=== PATIENT | female | born 1945 | race Caucasian/White ===

== ENCOUNTER → 2017-01-29 | Outpatient (CLI) | payer BC ==
[2017-01-29 13:13] LABS: ALT/SGPT 49 U/L (12-78); AST/SGOT 38 U/L (15-37); BLOOD UREA NITROGEN 22 mg/dl (7-18); BUN/CREATININE RATIO 20.3 (10-20); CALCIUM 9.3 mg/dl (8.5-10.1); CARBON DIOXIDE 27 mmol/L (21-32); CHLORIDE 105 mmol/L (98-107); CHOLESTEROL 166 mg/dl (0-200); GLUCOSE 135 mg/dl (70-99); POTASSIUM 4.1 mmol/L (3.5-5.1); SODIUM 137 mmol/L (136-145)
[2017-01-29 13:15] LABS: ALB/GLOB RATIO 1.4 (0.9-2); ALKALINE PHOSPHATASE 67 U/L (45-117); CHOLESTEROL/HDL RATIO 2.6; HDL CHOLESTEROL 63 mg/dl; LDL CHOLESTEROL CALCULATED 79 mg/dl; TRIGLYCERIDES 121 mg/dl (0-150); VERY LOW DENSITY LIPOPROT CALC 24 mg/dl
[2017-01-29 13:22] LABS: ESTIMATED AVERAGE GLUCOSE 163 mg/dl; HA1C FLAG Normal (Normal)
== END | disposition home or self-care (01) ==
LOC: C.LABMFLN 09:38
PROVIDERS: ATTEND Family Medicine
DX: I10 Essential (primary) hypertension (principal); E11.9 Type 2 diabetes mellitus without complications; E78.00 Pure hypercholesterolemia, unspecified

== ENCOUNTER → 2017-05-31 | Outpatient (CLI) | payer BC ==
[2017-05-31 13:42] LABS: ESTIMATED AVERAGE GLUCOSE 177 mg/dl; HA1C FLAG Normal (Normal)
[2017-05-31 15:24] LABS: BLOOD UREA NITROGEN 28 mg/dl (7-18); GLUCOSE 149 mg/dl (70-99)
[2017-05-31 15:25] LABS: BUN/CREATININE RATIO 25.7 (10-20); CALCIUM 9.8 mg/dl (8.5-10.1); CARBON DIOXIDE 21 mmol/L (21-32); CHLORIDE 109 mmol/L (98-107); POTASSIUM 4.3 mmol/L (3.5-5.1); SODIUM 139 mmol/L (136-145)
--- NOTE | 2017-06-06 10:46 | CODING QUERY MEDICAL NECESSITY ---
CQSUPPORTING DIAGNOSIS NEEDED A supporting diagnosis is required for the test/procedure performed on this patient in order for us to be reimbursed by the patient's insurance. Please provide a supporting diagnosis for the following test/procedure listed below next to the test name along with your signature. *If there is no additional diagnosis for this patient that would support the following test/procedure please document that below next to the test/procedure. Test(s)/Procedure(s) that require a supporting diagnosis: DOS 05/31/17 VITAMIN B12 Provider Signature: Date: Thank you Kimberly Ramsey [employer] Once completed, please kindly fax back to [phone] For questions please call [phone]
== END | disposition home or self-care (01) ==
LOC: C.LABMFLN 08:53
PROVIDERS: ATTEND Family Medicine
DX: I10 Essential (primary) hypertension (principal); E11.9 Type 2 diabetes mellitus without complications; K25.9 Gastric ulcer, unspecified as acute or chronic, without hemorrhage or perforation; E53.8 Deficiency of other specified B group vitamins

== ENCOUNTER → 2017-09-12 | Outpatient (CLI) | payer BC ==
[2017-09-12 13:57] LABS: ALT/SGPT 60 U/L (12-78); AST/SGOT 41 U/L (15-37); BLOOD UREA NITROGEN 24 mg/dl (7-18); BUN/CREATININE RATIO 19.8 (10-20); CALCIUM 9.4 mg/dl (8.5-10.1); CARBON DIOXIDE 24 mmol/L (21-32); CHLORIDE 109 mmol/L (98-107); GLUCOSE 149 mg/dl (70-99); POTASSIUM 4.5 mmol/L (3.5-5.1); SODIUM 140 mmol/L (136-145)
[2017-09-12 14:00] LABS: ALB/GLOB RATIO 1.1 (0.9-2); ALKALINE PHOSPHATASE 68 U/L (45-117); CHOLESTEROL 181 mg/dl (0-200); HDL CHOLESTEROL 61 mg/dl; LDL CHOLESTEROL CALCULATED 88 mg/dl; TRIGLYCERIDES 161 mg/dl (0-150); VERY LOW DENSITY LIPOPROT CALC 32 mg/dl
[2017-09-12 14:49] LABS: ESTIMATED AVERAGE GLUCOSE 171 mg/dl; HA1C FLAG Normal (Normal)
== END | disposition home or self-care (01) ==
LOC: C.LABMFLN 08:20
PROVIDERS: ATTEND Family Medicine
DX: E11.9 Type 2 diabetes mellitus without complications (principal); E78.00 Pure hypercholesterolemia, unspecified

== ENCOUNTER → 2018-01-16 | Outpatient (CLI) | payer BC ==
[2018-01-16 12:57] LABS: ALBUMIN 4.1 gm/dl (3.4-5.0); ALT/SGPT 48 U/L (12-78); BLOOD UREA NITROGEN 30 mg/dl (7-18); CALCIUM 9.1 mg/dl (8.5-10.1); CARBON DIOXIDE 24 mmol/L (21-32); CHOLESTEROL 174 mg/dl (0-200); CREATININE 1.15 mg/dl (0.60-1.20); GLUCOSE 147 mg/dl (70-99); POTASSIUM 4.4 mmol/L (3.5-5.1); SODIUM 140 mmol/L (136-145)
[2018-01-16 13:00] LABS: ALKALINE PHOSPHATASE 59 U/L (45-117); AST/SGOT 32 U/L (15-37); LDL CHOLESTEROL CALCULATED 93 mg/dl; TOTAL PROTEIN 7.3 gm/dl (6.4-8.2)
[2018-01-16 13:08] LABS: HEMOGLOBIN A1C 7.6 % (4.5-5.6)
== END | disposition home or self-care (01) ==
LOC: C.LABMFLN 09:24
PROVIDERS: ATTEND Family Medicine
DX: I10 Essential (primary) hypertension (principal); E11.9 Type 2 diabetes mellitus without complications; E78.00 Pure hypercholesterolemia, unspecified

== ENCOUNTER → 2018-04-22 | Outpatient (CLI) | payer BC ==
[2018-04-22 13:15] LABS: BLOOD UREA NITROGEN 29 mg/dl (7-18); CALCIUM 9.4 mg/dl (8.5-10.1); CARBON DIOXIDE 24 mmol/L (21-32); CREATININE 1.18 mg/dl (0.60-1.20); GLUCOSE 159 mg/dl (70-99); POTASSIUM 4.3 mmol/L (3.5-5.1); SODIUM 139 mmol/L (136-145)
[2018-04-22 13:33] LABS: HEMOGLOBIN A1C 8.1 % (4.5-5.6)
== END | disposition home or self-care (01) ==
LOC: C.LABMFLN 09:46
PROVIDERS: ATTEND Family Medicine
DX: E11.43 Type 2 diabetes mellitus with diabetic autonomic (poly)neuropathy (principal)

== ENCOUNTER → 2018-06-19 | Outpatient (CLI) | payer BC ==
[2018-06-19 13:42] LABS: BLOOD UREA NITROGEN 25 mg/dl (7-18); CREATININE 1.18 mg/dl (0.60-1.20)
== END | disposition home or self-care (01) ==
LOC: C.LABMFLN 10:07
PROVIDERS: ATTEND Family Medicine
DX: E11.43 Type 2 diabetes mellitus with diabetic autonomic (poly)neuropathy (principal)

== ENCOUNTER 2023-01-30 10:25 | Inpatient (IN) ==
--- NOTE | 2022-12-28 10:16 | PAT Medication Instructions ---
Medication Instructions Date of Service December 28, 2022 Home Medications Medication Instructions Recorded coenzyme Q10 400 mg capsule 400 mg PO DAILY #90 caps 05/14/19 fexofenadine 180 mg tablet 180 mg PO DAILY PRN allergy 05/14/19 symptoms #90 tabs glucosamine 750 ft-zmnejewhymy-mmx 1 tab PO BID #60 tabs 08/04/20 no1 644 mg-C 30 mg-kera 1 mg tablet (Osteo Bi-Flex Triple Strength) methocarbamol 500 mg tablet See Rx Instructions PO QID PRN 03/07/22 muscle spasm #360 tabs citalopram 10 mg tablet 10 mg PO QAM #90 tabs 04/24/22 glimepiride 4 mg tablet 4 mg PO BID #180 tabs 07/23/22 metoprolol tartrate 50 mg tablet 50 mg PO BID #180 tabs 07/23/22 conjugated estrogens 0.3 mg tablet 0.3 mg PO DAILY #30 tabs 08/02/22 fenofibrate 54 mg tablet 54 mg PO DAILY #90 tabs 08/07/22 amlodipine 2.5 mg tablet 2.5 mg PO DAILY #90 tabs 08/31/22 celecoxib 200 mg capsule 200 mg PO DAILY #90 caps 09/18/22 hydrochlorothiazide 25 mg tablet 25 mg PO DAILY #90 tabs 09/25/22 gabapentin 300 mg capsule 300 mg PO TID #270 caps 10/08/22 atorvastatin 40 mg tablet 40 mg PO DAILY #90 tabs 10/29/22 metformin 500 mg tablet,extended 500 mg PO BID #180 tabs 11/06/22 release 24 hr losartan 100 mg tablet 100 mg PO DAILY #90 tabs 12/04/22 lansoprazole 30 mg capsule,delayed 30 mg PO DAILY #90 caps 12/19/22 release hydrocodone 5 mg-acetaminophen 325 See Rx Instructions PO QID PRN 12/21/22 mg tablet pain #240 tabs albuterol sulfate 90 mcg/actuation aerosol inhaler 2 puffs inhalation Q4H PRN shortness of breath or wheezing coenzyme Q10 400 mg capsule 400 mg PO DAILY fexofenadine 180 mg tablet 180 mg PO DAILY PRN allergy symptoms nqfB-H2-V-V-uhwvup-imjbsgt-min 3,300 unit-5 mg-200mg-75 unit tablet ER (ICaps) 1 tab PO BID magnesium oxide 400 mg (241.3 mg magnesium) tablet 1,200 mg PO HS glucosamine 750 hw-qvpxghrjcsq-yik no1 644 mg-C 30 mg-kera 1 mg tablet (Osteo Bi-Flex Triple Strength) 1 tab PO BID methocarbamol 500 mg tablet See Rx Instructions PO QID PRN muscle spasm citalopram 10 mg tablet 10 mg PO QAM glimepiride 4 mg tablet 4 mg PO BID metoprolol tartrate 50 mg tablet 50 mg PO BID conjugated estrogens 0.3 mg tablet 0.3 mg PO DAILY fenofibrate 54 mg tablet 54 mg PO DAILY amlodipine 2.5 mg tablet 2.5 mg PO DAILY fluticasone propionate 50 mcg/actuation nasal spray,suspension 2 spray intranasal DAILY PRN Allergy Symptoms celecoxib 200 mg capsule 200 mg PO DAILY hydrochlorothiazide 25 mg tablet 25 mg PO DAILY gabapentin 300 mg capsule 300 mg PO TID atorvastatin 40 mg tablet 40 mg PO DAILY metformin 500 mg tablet,extended release 24 hr 500 mg PO BID losartan 100 mg tablet 100 mg PO DAILY lansoprazole 30 mg capsule,delayed release 30 mg PO DAILY hydrocodone 5 mg-acetaminophen 325 mg tablet See Rx Instructions PO QID PRN pain ASK your surgeon for instructions conjugated estrogens 0.3 mg tablet 0.3 mg PO DAILY celecoxib 200 mg capsule 200 mg PO DAILY STOP taking 2 weeks before surgery (or as soon as possible if surgery is within 2 weeks) coenzyme Q10 400 mg capsule 400 mg PO DAILY edhF-M1-L-E-trhusv-atkwoad-min 3,300 unit-5 mg-200mg-75 unit tablet ER (ICaps) 1 tab PO BID glucosamine 750 wh-hctwyguliad-ira no1 644 mg-C 30 mg-kera 1 mg tablet (Osteo Bi-Flex Triple Strength) 1 tab PO BID STOP taking 48 hours before surgery fenofibrate 54 mg tablet 54 mg PO DAILY DO NOT take the morning of surgery fexofenadine 180 mg tablet 180 mg PO DAILY PRN allergy symptoms methocarbamol 500 mg tablet See Rx Instructions PO QID PRN muscle spasm glimepiride 4 mg tablet 4 mg PO BID hydrochlorothiazide 25 mg tablet 25 mg PO DAILY metformin 500 mg tablet,extended release 24 hr 500 mg PO BID losartan 100 mg tablet 100 mg PO DAILY Take morning of surgery With a small sip of water, OTHERWISE NOTHING TO EAT OR DRINK AFTER MIDNIGHT: albuterol sulfate 90 mcg/actuation aerosol inhaler 2 puffs inhalation Q4H PRN shortness of breath or wheezing (use if needed; please bring rescue inhaler with you to hospital day of surgery if possible) citalopram 10 mg tablet 10 mg PO QAM metoprolol tartrate 50 mg tablet 50 mg PO BID amlodipine 2.5 mg tablet 2.5 mg PO DAILY fluticasone propionate 50 mcg/actuation nasal spray,suspension 2 spray intranasal DAILY PRN Allergy Symptoms (if needed) gabapentin 300 mg capsule 300 mg PO TID atorvastatin 40 mg tablet 40 mg PO DAILY lansoprazole 30 mg capsule,delayed release 30 mg PO DAILY hydrocodone 5 mg-acetaminophen 325 mg tablet See Rx Instructions PO QID PRN pain (if needed) Take evening before surgery albuterol sulfate 90 mcg/actuation aerosol inhaler 2 puffs inhalation Q4H PRN shortness of breath or wheezing (if needed) fexofenadine 180 mg tablet 180 mg PO DAILY PRN allergy symptoms (if needed) magnesium oxide 400 mg (241.3 mg magnesium) tablet 1,200 mg PO HS methocarbamol 500 mg tablet See Rx Instructions PO QID PRN muscle spasm (if needed) glimepiride 4 mg tablet 4 mg PO BID metoprolol tartrate 50 mg tablet 50 mg PO BID fluticasone propionate 50 mcg/actuation nasal spray,suspension 2 spray intranasal DAILY PRN Allergy Symptoms (if needed) gabapentin 300 mg capsule 300 mg PO TID metformin 500 mg tablet,extended release 24 hr 500 mg PO BID hydrocodone 5 mg-acetaminophen 325 mg tablet See Rx Instructions PO QID PRN pain (if needed) Other Notes If you have any questions please call us at [phone] or [phone] or [phone] or [phone]
--- NOTE | 2023-01-02 13:57 | Anesthesiology Consultation ---
Date of Service January 02, 2023 Assessment & Plan (1) Encounter for pre-operative examination: Chart Review Chart Review: Acceptable Risk for Surgery (pending PCP clearance 01/03/23 and preop UA ) and Patient seen in Pre Admission Testing -Awaiting UA (pt unable to void at PAT appt- given order and supplies- pt will drop off 01/03/23 or 01/04/23 at [facility]) -Awaiting PCP clearance 01/03/23 - Check BSG AM DOS Pt is NOT a Same Day Joint candidate due to age Pt will update surgeon re: pessary- will leave to surgeon's discretion if pessary can remain in place or if needs removed prior to DOS Per PAT appt on 01/02/23, patient denies any recent travel or large group activities. Pt is vaccinated for Covid. Will leave to surgeon's discretion if preop Covid testing needed. Educated on importance of using Covid precautions one week prior to surgery Pt last seen by cardio 08/31/22= Pt seen for follow up on SVT. Outpatient monitoring suggests reentrant mechanism for SVT. Episodes have been brief in duration and well tolerated. Did have extended episode with some symptoms recently. Would still consider this benign condition. Discussed mechanism of SVT and overall benign nature of this arrhythmia. Discussed possible treatments including continued medical therapy or catheter based therapy. Discussed utility of vagal maneuvers and potentially terminating the arrhythmia. At this point she wants to continue to monitor her episodes on a higher dose of metoprolol. Should her symptoms worsen or she request more aggressive therapy she could be referred back to the clinic for discussion of alternatives. Follow up in six months Teaching & Discussion Pre-Anesthesia Teaching/Discussion Notes: Instructed NPO after midnight before surgery,except medications with 15 cc of water. Medication instructions provided according to the PAT guidelines. History Surgery Operation Date: 01/30/23 12:25 Proposed Procedures p Left Total Shoulder Arthroplasty, Arthroscopy with Distal Clavicle Excision, Subacromial Decompression - Neil Polanco MD Height/Weight Height: 5 ft 4 in Weight: 73.8 kg Allergies Allergy/AdvReac Type Severity Reaction Status Date / Time ibuprofen Allergy Mild Gastrointestinal Verified 12/27/22 15:19 Upset metronidazole [From Flagyl] Allergy Mild Gastrointestinal Verified 12/27/22 15:19 Upset propoxyphene [From Darvon] Allergy Mild Fatigued Verified 12/27/22 15:19 Medications Home Medications Medication Instructions Recorded Confirmed Last Taken albuterol sulfate 90 mcg/actuation 2 puffs inhalation Q4H PRN 05/14/19 12/27/22 Unknown aerosol inhaler shortness of breath or wheezing #1 g blood sugar diagnostic (Prodigy No #10 ea 05/14/19 11/05/22 Unknown Coding strips) coenzyme Q10 400 mg capsule 400 mg PO DAILY #90 caps 05/14/19 12/27/22 Unknown fexofenadine 180 mg tablet 180 mg PO DAILY PRN allergy 05/14/19 12/27/22 Unknown symptoms #90 tabs lancets 30 gauge (Easy Comfort #25 ea 05/14/19 11/05/22 Unknown Lancets) oilP-V0-Q-K-tkqxiu-vqdfggq-min 1 tab PO BID 05/14/19 12/27/22 Unknown 3,300 unit-5 mg-200mg-75 unit tablet ER (ICaps) magnesium oxide 400 mg (241.3 mg 1,200 mg PO HS 11/05/19 12/27/22 Unknown magnesium) tablet glucosamine 750 sm-qloqlbqieaz-uko 1 tab PO BID #60 tabs 08/04/20 12/27/22 Unknown no1 644 mg-C 30 mg-kera 1 mg tablet (Osteo Bi-Flex Triple Strength) methocarbamol 500 mg tablet See Rx Instructions PO QID PRN 03/07/22 12/27/22 Unknown muscle spasm #360 tabs citalopram 10 mg tablet 10 mg PO QAM #90 tabs 04/24/22 12/27/22 Unknown glimepiride 4 mg tablet 4 mg PO BID #180 tabs 07/23/22 12/27/22 Unknown metoprolol tartrate 50 mg tablet 50 mg PO BID #180 tabs 07/23/22 12/27/22 Un known conjugated estrogens 0.3 mg tablet 0.3 mg PO DAILY #30 tabs 08/02/22 12/27/22 Unknown fenofibrate 54 mg tablet 54 mg PO DAILY #90 tabs 08/07/22 12/27/22 Unknown amlodipine 2.5 mg tablet 2.5 mg PO DAILY #90 tabs 08/31/22 12/27/22 Unknown fluticasone propionate 50 2 spray intranasal DAILY PRN 08/31/22 12/27/22 Unknown mcg/actuation nasal Allergy Symptoms #16 grams spray,suspension celecoxib 200 mg capsule 200 mg PO DAILY #90 caps 09/18/22 12/27/22 Unknown hydrochlorothiazide 25 mg tablet 25 mg PO DAILY #90 tabs 09/25/22 12/27/22 Unknown gabapentin 300 mg capsule 300 mg PO TID #270 caps 10/08/22 12/27/22 Unknown atorvastatin 40 mg tablet 40 mg PO DAILY #90 tabs 10/29/22 12/27/22 Unknown metformin 500 mg tablet,extended 500 mg PO BID #180 tabs 11/06/22 12/27/22 Unknown release 24 hr losartan 100 mg tablet 100 mg PO DAILY #90 tabs 12/04/22 12/27/22 Unknown lansoprazole 30 mg capsule,delayed 30 mg PO DAILY #90 caps 12/19/22 12/27/22 Unknown release hydrocodone 5 mg-acetaminophen 325 See Rx Instructions PO QID PRN 12/21/22 12/27/22 Unknown mg tablet pain #240 tabs Past Medical History Medical History (Updated 01/03/23 @ 10:09 by Ruby Zuluaga PA-C) Allergic rhinitis Benign essential hypertension Cervicalgia Since fall in September- pain improved Chronic back pain Hx of scoliosis per patient Colon adenoma s/p polypectomy- no current issues Cystocele Wears pessary Depression GERD without esophagitis Controlled and stable History of concussion S/p fall September 2022- symptoms resolved History of fallSeptember 2022 History of gastric ulcer No recent issues Hyperlipidemia Lumbar spinal stenosis Onychomycosis Noted to toes SVT (supraventricular tachycardia) Rate controlled, able to self break with valsalva Type 2 diabetes, controlled, with neuropathy Glucose fair control Vaginal prolapse s/p pessary Exercise / Class Metabolic Activity II 4-5 Yardwork/Stairs/Walk up hill (one flight of stairs - no chest pain or SOB ) Past Family History Family History Father Colorectal cancer Sister Cervical cancer Denies family history of Ovarian cancer Breast cancer Lung cancer Past Surgical History Surgical History H/O colonoscopy H/O: hysterectomy History of knee replacement Right Hx of cholecystectomy Hx of tonsillectomy Past Anesthesia History No Hx of Anesthesia Complications and No Family Hx of Anesthesia Complications History of PONV No Hx of PONV and No Hx of Motion Sickness Social History Smoking Status: Never smoker Do You Dip or Chew Tobacco: No Hx Alcohol Use: No Hx Substance Use: No substance use type: does not use Review of Systems Snoring - no witnessed apnea- no hx of sleep study Patient denies chest pain, shortness of breath, dyspnea on exertion, cough, wheezing, palpitations. No hx of seizures, stroke, ND. No hx of blood clots or blood transfusions Physical Exam Vital Signs VITALS BP 121/58 P 65 TEMP 98.3 SP02 96% RESP 16 Constitutional no acute distress ENMT Mouth: no TMJ clicking Thyromental Distance: < 3.5 Finger Breadths (2.5) Mallampati Class: I Partial dentures top and bottom Neck + limited neck extension (mild) Respiratory normal respiratory effort; no respiratory distress Auscultation: lungs clear to auscultation bilaterally; no wheezes Cardiovascular Rate/Rhythm: regular rate and regular rhythm Heart Sounds: no murmur Vessels: no carotid bruit Occ missed beat Musculoskeletal Spine: no pain with cervical ROM Extremities: extremities normal to inspection Psychiatric Orientation: alert Lab Results Anesthesia Preop Results Results Anesthesia Widget: WBC 5.97 K/ul (4.8-10.8) 01/02/23 Hgb 11.3 g/dl (12.0-16.0) L 01/02/23 Hct 34.5 % (37.0-47.0) L 01/02/23 Plt 195 K/uL (130-400) 01/02/23 Na 138 mmol/L (136-145) 01/02/23 K 4.8 mmol/L (3.5-5.1) 01/02/23 Cl 108 mmol/L (98-107) H 01/02/23 CO2 25 mmol/L (21-32) 01/02/23 BUN 24 mg/dl (6-23) H 01/02/23 Creat 1.04 mg/dl (0.6-1.2) 01/02/23 Glucose Level 189 mg/dl (70-99(Fasting)) H 01/02/23 PT 11.4 Seconds (9.0-12.0) 01/02/23 PTT 31.0 Seconds (21.0-31.0) 01/02/23 INR 1.1 (0.9-1.1) 01/02/23 HA1c 7.9 % (4.5-5.6) H 01/02/23 Blood Type A Positive 01/02/23 Antibody Screen NEGATIVE 01/02/23 Testing Laboratory Results Anemia chronic and stable since 2018 Electrocardiogram Date: 01/02/23 Normal sinus rhythm with sinus arrhythmia at 63 bpm Normal EKG per cardio Chest X-Ray Date: 01/02/23 Findings: + NAD Other Testing Holter monitor 06/28/22= SR. Episodes of SVT. PACs and PVCs. Symptoms (heart racing) typically correlated with SVT and/or PACs/PVCs COVID-19 Risk Screen Screening Information COVID-19 Screen Date: 01/02/23 Exposure 21 Days Family/Household +COVID Last 21 Days: No Exposure 10 Days Any COVID Exposure Last 10 Days: No Symptoms Last 10 Days Experienced COVID Sx Last 10 Days: No + COVID 0-90 Days COVID + in Last 0-90 Days: No Risk Plan COVID Risk Plan: No Risk Identified Patient Education COVID Preop Screening Education Complete: Yes
--- NOTE | 2023-01-29 11:53 | History & Physical Report ---
Date of Service January 29, 2023 Assessment & Plan (1) Primary osteoarthritis, left shoulder: Plan: Treatment options discussed with patient. She has failed conservative measures. She would like to proceed with surgical intervention. Risks, benefits and alternatives to surgery including but not limited to infection, DVT, pain, stiffness, need for revision surgery, damage to blood vessels, damage to nerves, PE, , were discussed with the patient and they wish to proceed. Plan on left total shoulder arthroplasty, open distal clavicle excision and subacromial decompression scheduled for [facility] on 01/30/[address] Polanco. Plan on outpatient PT post op. All questions answered. F/u post op. History of Present Illness Chief Complaint: Left shoulder pain Primary Care Provider: Kalin Rodarte MD 77 year old female with PMHx significant for DM2, HTN, high cholesterol, PSVT, ongoing left shoulder pain. Pain interfering with her daily activity. She has failed conservative measures and would like to proceed with surgical intervention. Patient denies headaches, sweats, fevers, chills, double vision, blurred vision, cough, sore throat, dysphagia, chest pain, sob, wheezing, n/v/d/c, numbness, tingling, fatigue, urinary symptoms, mood disorders. ROS positive for left shoulder pain and stiffness. Allergies Allergy/AdvReac Type Severity Reaction Status Date / Time ibuprofen Allergy Mild Gastrointestinal Verified 01/21/23 10:53 Upset metronidazole [From Flagyl] Allergy Mild Gastrointestinal Verified 01/21/23 10:53 Upset propoxyphene [From Darvon] Allergy Mild Fatigued Verified 01/21/23 10:53 Home Medications Medication Instructions Recorded Confirmed Type albuterol sulfate 90 mcg/actuation 2 puffs inhalation Q4H PRN 05/14/19 01/21/23 History aerosol inhaler shortness of breath or wheezing #1 g blood sugar diagnostic (Prodigy No #10 ea 05/14/19 01/21/23 History Coding strips) coenzyme Q10 400 mg capsule 400 mg PO DAILY #90 caps 05/14/19 01/21/23 Rx fexofenadine 180 mg tablet 180 mg PO DAILY PRN allergy 05/14/19 01/21/23 Rx symptoms #90 tabs lancets 30 gauge (Easy Comfort #25 ea 05/14/19 01/21/23 History Lancets) iojI-F7-G-O-vpdcvl-fnlekxy-min 1 tab PO BID 05/14/19 01/21/23 History 3,300 unit-5 mg-200mg-75 unit tablet ER (ICaps) magnesium oxide 400 mg (241.3 mg 1,200 mg PO HS 11/05/19 01/21/23 History magnesium) tablet glucosamine 750 dc-pdtjtsignmt-oyt 1 tab PO BID #60 tabs 08/04/20 01/21/23 Rx no1 644 mg-C 30 mg-kera 1 mg tablet (Osteo Bi-Flex Triple Strength) methocarbamol 500 mg tablet See Rx Instructions PO QID PRN 03/07/22 01/21/23 Rx muscle spasm #360 tabs citalopram 10 mg tablet 10 mg PO QAM #90 tabs 04/24/22 01/21/23 Rx glimepiride 4 mg tablet 4 mg PO BID #180 tabs 07/23/22 01/21/23 Rx metoprolol tartrate 50 mg tablet 50 mg PO BID #180 tabs 07/23/22 01/21/23 Rx conjugated estrogens 0.3 mg tablet 0.3 mg PO DAILY #30 tabs 08/02/22 01/21/23 Rx fenofibrate 54 mg tablet 54 mg PO DAILY #90 tabs 08/07/22 01/21/23 Rx amlodipine 2.5 mg tablet 2.5 mg PO DAILY #90 tabs 08/31/22 01/21/23 Rx fluticasone propionate 50 2 spray intranasal DAILY PRN 08/31/22 01/21/23 History mcg/actuation nasal Allergy Symptoms #16 grams spray,suspension celecoxib 200 mg capsule 200 mg PO DAILY #90 caps 09/18/22 01/21/23 Rx hydrochlorothiazide 25 mg tablet 25 mg PO DAILY #90 tabs 09/25/22 01/21/23 Rx gabapentin 300 mg capsule 300 mg PO TID #270 caps 10/08/22 01/21/23 Rx atorvastatin 40 mg tablet 40 mg PO DAILY #90 tabs 10/29/22 01/21/23 Rx metformin 500 mg tablet,extended 500 mg PO BID #180 tabs 11/06/22 01/21/23 Rx release 24 hr losartan 100 mg tablet 100 mg PO DAILY #90 tabs 12/04/22 01/21/23 Rx hydrocodone 5 mg-acetaminophen 325 See Rx Instructions PO QID PRN 12/21/22 01/21/23 Rx mg tablet pain #240 tabs lansoprazole 30 mg capsule,delayed 30 mg PO DAILY #90 caps 01/22/23 Rx release Past Med/Surg History Medical History (Updated 01/27/23 @ 13:59 by Kalin Rodarte MD) Allergic rhinitis Benign essential hypertension Cervicalgia Since fall in September- pain improved Chronic back pain Hx of scoliosis per patient Colon adenoma s/p polypectomy- no current issues Cystocele Wears pessary Depression GERD without esophagitis Controlled and stable History of concussion S/p fallSeptember 2022- symptoms resolved History of fallSeptember 2022 History of gastric ulcer No recent issues Hyperlipidemia Lumbar spinal stenosis Onychomycosis Noted to toes Paroxysmal supraventricular tachycardia by electrocardiogram (ECG) Primary osteoarthritis, left shoulder SVT (supraventricular tachycardia) Rate controlled, able to self break with valsalva Type 2 diabetes, controlled, with neuropathy Glucose fair control Urinary frequency Vaginal prolapse s/p pessary Surgical History H/O colonoscopy H/O: hysterectomy History of knee replacement Right Hx of cholecystectomy Hx of tonsillectomy Family History Father Colorectal cancer Sister Cervical cancer Denies family history of Ovarian cancer Breast cancer Lung cancer Social History Smoking Status: Never smoker Second Hand Exposure: No; Hx Alcohol Use: No Hx Substance Use: No Preferred Language: Syrian Research Investigator Required: No Beliefs That Will Affect Care: None marital status: / Current Living Situation: Alone current occupational status: retired How many Children do You have: 1 Feels Safe at Home: Yes Seatbelt Use: always Assistive Devices: Glasses Review of Systems All systems reviewed & are unremarkable except as noted in HPI & below Physical Exam Constitutional: well developed and well nourished; no acute distress Eyes: PERRL, conjunctivae normal, anicteric sclerae ENMT: external ear and nose normal, oropharynx normal Neck: trachea midline, no thyromegaly Respiratory: normal respiratory effort, lungs clear to auscultation Cardiovascular: RRR, no murmur, no edema Musculoskeletal: Left shoulder: Painful ROM. FF to 100 degrees, abduction to 90 degrees. ER to 40 degrees. Crepitation with ROM. Diffuse tenderness. Positive impingement signs, positive cross body. Skin: no rashes, warm and dry Neurologic: patellar DTR's 2+ bilat, sensation intact Psychiatric: A+Ox3, euthymic affect Results & Data ([place]) Diagnostic Findings X-rays of her left shoulder demonstrate advanced glenohumeral osteoarthritis, with inferior glenoid and humeral osteophytes. Bone on bone with some slight posterior wear pattern. Minimal subluxation on axillary view. She also has an inferior acromial spur that would likely cause subacromial impingement and hypertrophic grade 4 osteoarthritis of the AC joint. Four-view left shoulder x- rays were taken and reviewed. MRI demonstrates intact rotator cuff
[~2023-01-30 10:25] MED LIST: BUPIVACAINE 0.5 % 5 MG/1 ML PF 10ML VIAL ONE; LR 15ML/HR IV SCH
[2023-01-30] MEDS ORDERED: ATROPINE SULFATE 0.1 MG/ML 10ML SYR IV PRN (11:22)
[2023-01-30] MEDS ORDERED: ePHEDrine sulfate 50 MG/ML AMP IV PRN (11:22)
[2023-01-30] MEDS ORDERED: fentaNYL citrate 100 MCG/2 ML VIAL IV PRN (11:22)
[2023-01-30] MEDS ORDERED: ONDANSETRON INJ 2 MG/ML 2 ML VIAL IV PRN ×2 (11:22→17:09)
[2023-01-30] MEDS ORDERED: PROPOFOL IV EMULSION 10 MG/ML 20 ML VIAL IV ONE (11:32)
[2023-01-30] MEDS ORDERED: fentaNYL citrate 100 MCG/2 ML VIAL ONE (11:32)
[2023-01-30] MEDS ORDERED: ROCURONIUM BROMIDE 10 MG/ML 5 ML VIAL IV ONE (11:32)
[2023-01-30] MEDS ORDERED: ONDANSETRON INJ 2 MG/ML 2 ML VIAL ONE (11:32)
[2023-01-30] MEDS ORDERED: LIDOCAINE 2% MPF LOCAL 5 ML VIAL INFIL ONE (11:32)
[2023-01-30] MEDS ORDERED: MIDAZOLAM HCL 1 MG/ML 2ML VIAL ONE (11:32)
[2023-01-30] MEDS ORDERED: ORTHO JOINT ANESTHETIC ONE (12:31)
[2023-01-30] MEDS ORDERED: ceFAZolin 2,000 MG/15 ML IV PUSH IV ONE (12:33)
[2023-01-30] MEDS ORDERED: TRANEXAMIC ACID / 0.7% NACL 1000MG/100ML BAG IV ONE (12:33)
--- NOTE | 2023-01-30 12:36 | History & Physical Bridge Note ---
Date of Service January 30, 2023 History & Physical Bridge Note I have examined the patient, reviewed the History & Physical and in the interval since the performance of the History & Physical I have noted the following changes of clinical significance: no changes noted
[2023-01-30] MEDS ORDERED: EpINEphrine HCL INJ 1 MG/ML 1ML SYRINGE ONE (12:56)
[2023-01-30] MEDS ORDERED: SUGAMMADEX SODIUM 200 MG/2 ML VIAL IV ONE (15:30)
[2023-01-30] MEDS ORDERED: TRANEXAMIC ACID 100 MG/ML 10 ML VIAL IV ONE (15:34)
--- NOTE | 2023-01-30 15:35 | Post Operative Brief Note ---
Immediate Post Op Note v1 Date of Surgery January 30, 2023 Pre & Post Diagnosis Operation Date: 01/30/23 12:35 Pre-Op Diagnosis: Left Shoulder Primary Osteoarthritis, end-stage glenohumeral and AC joint osteoarthritis, biceps tendinopathy tenosynovitis Post-Op Diagnosis: Left Shoulder Primary Osteoarthritis, end-stage glenohumeral and AC joint osteoarthritis, biceps tendinopathy tenosynovitis I identified the patient and participated in the time-out.: Yes Procedure Operation Date: 01/30/23 12:35 Actual Procedures p Left Total Shoulder Arthroplasty with Distal Clavicle Excision and Biceps Tenodesis(Left) - Neil Polanco MD Surgeon Neil Polanco MD Marketing Operations Specialist Kurt DEVLIN Estimated Blood Loss 40 Findings Consistent with Post-Op Diagnosis Specimens Humeral head Drains Hemovac Drain Anesthesia Type General Regional Complications none Disposition Disposition: Recovery Room Overlapping Procedure I was present for: the critical portions of procedure. Back up surgeon: was not required during procedure.
--- NOTE | 2023-01-30 16:06 | Operative Report ---
Post Operative Report Pre & Post Diagnosis Operation Date: 01/30/23 12:35 Pre-Op Diagnosis: Left Shoulder Primary Osteoarthritis end-stage glenohumeral and acromioclavicular joint, biceps tendinopathy with tenosynovitis. Post-Op Diagnosis: Left Shoulder Primary Osteoarthritis end-stage glenohumeral and acromioclavicular joint, biceps tendinopathy with tenosynovitis I identified the patient and participated in the time-out.: Yes Procedure Operation Date: 01/30/23 12:35 Actual Procedures p Left Total Shoulder Arthroplasty with Distal Clavicle Excision and Biceps Tenodesis(Left) - Neil Polanco MD Surgeon Neil Polanco MD Expansion Joint Finisher Kurt DEVLIN Estimated Blood Loss 40 Findings Consistent with Post-Op Diagnosis Specimens Humeral head Drains 2 Hemovac Anesthesia Type General Regional Complications none Disposition Disposition: Recovery Room Indications 77-year-old female with chronic osteoarthritis left shoulder progression over time [id number] with AC joint osteoarthritis intact rotator cuff. Patient has significant biceps tenosynovitis tendinopathy. Some tendinopathy of the rotator cuff without a tear. Description of Procedure The patient was taken to the operating room and anesthetized under a general and regional block anesthesia. A towel roll was placed under the medial border of the scapula of the left shoulder. The patient's head was placed on a foam headrest and protective eyewear was placed and the extremities were well padded. The arm was draped free in order to manipulate the shoulder as necessary. The shoulder exam demonstrated 130 degrees forward flexion 70 degrees AB duction external rotation to 30 degrees. The shoulder was sterilely prepped and draped in the usual sterile fashion. An anterior deltopectoral approach was performed. A longitudinal incision was made in the interval. The skin was incised sharply and subcutaneous tissues dissected down to the fascia. There was not a normal- appearing cephalic vein and a crossing vein that was cauterized. The clavipectoral fascia was divided at the lateral margin of the conjoined tendon and divided up to the level of the coracoacromial ligament which was preserved. The upper 1 cm of the pectoralis was released for inferior exposure. The biceps tendon findings demonstrated chronic tenosynovitis extending up in the bicipital groove area and proximal widening consistent with tendinopathy. The rotator cuff tendon findings demonstrated intact rotator cuff all tendon groups. The circumflex vessels were identified and tied off with silk ties and divided laterally. The fibers and subscapularis were split longitudinally at the level of the circumflex vessels down to the capsule and then reflected off the inferior capsule using a Kitner elevator. The axillary nerve was identified with a tug test and protected with a blunt Maryam retractor. The rotator interval was opened up and extended down to the glenoid. The biceps tendon was identified and tenodesed to the pectoralis tendon with nfqala-ef-[id number] #2 FiberWire sutures in the proximal biceps was resected. The subscapularis tendon was taken down with a trans-tendinous incision leaving a cuff of tissue for repair on the lesser tuberosity. The incision was carried down to the tendon and the capsule and a #1 Vicryl suture was placed into the free end of the subscapularis tendon. The capsule was subperiosteally dissected off the inferior neck of the humerus exposing the humeral osteophytes which demonstrated large inferior osteophytes extending from anterior to posterior there was eburnated bone on humeral head. The osteophytes were excised with an artist chisel and a rongeur. The capsular release along the inferior neck of the humerus was completed. The humerus was then retracted posterior to the glenoid with a Fukuda retractor. The remainder of the biceps tendon and labrum was resected. The glenoid findings demonstrated type A wear pattern with small amount of articular cartilage in a crescent shape at the anteriormost aspect of the glenoid with his bone spurs on the anterior glenoid. There were multiple subcoracoid loose bodies that were resected.. I did an anterior inferior and posterior inferior release with electrocautery on bone and a Louis elevator with the axillary nerve continuing to be protected with the blunt Hohmann retractor inferiorly. When the releases were completed and the humeral head was exposed with some extension and external rotation and in anatomic head cut was made using the oscillating saw. Thumb press test demonstrated soft bone centrally extending into a subchondral cyst which was debrided. I needed to use a short stem component. The Tornier total shoulder arthroplasty was used including the Cortiloc glenoid component. Attention was first taken to preparation of the humeral shaft. A centralizing awl was used followed by broaches up to the appropriate size which was a 3 stem. The trial broach was left in place and a cut protector was placed. The humerus was then retracted posterior to the glenoid using a Bankart retractor anteriorly and blunt Maryam and posterior Tornier glenoid retractor. A central drill hole was made into the glenoid. The glenoid was sized for a size 35 radius small Cortiloc glenoid component. The glenoid was reamed and the central drill widened and the guide for the 3 peripheral peg holes was placed in the peg holes were drilled and a trial component was placed with a tight fit. The trial was removed and the glenoid was irrigated with pulsatile lavage antibiotic solution and the drill holes were dried and packed with epinephrine-soaked tampons for hemostasis. The Palacos G cement was vacuum mixed. The final component was cemented into position and held in position with pressure until the cement cured. A humeral head trial was placed. A trial reduction was performed and the shoulder was stable. The trial was removed and the humerus and canal were irrigated with pulse saline solution. 3 drill holes were made into the hard bone in the bicipital groove lateral to the lesser tuberosity and 3 #5 FiberWire transosseous sutures were placed for repair of the subscapularis. After further irrigation of the canal and the final components were assembled. The final components were the 3B standard ascend flex humeral stem with a 46 x 17 humeral head. The implant was then impacted into the humerus with a tight press-fit. The humerus was reduced to the glenoid and stability verified. The subscapularis was repaired with the #5 FiberWire sutures in a Eladio-Darwin suture technique and lateral row fixation with oscaur-sq-emlhy #2 FiberWire in the soft tissue. The rotator interval was closed and maximal external rotation. The pectoralis was then closed with qitlls-vh-rglql #2 FiberWire suture. The sutures were passed through the biceps tendon as well to reinforce the biceps tenodesis. Moist sponge was placed into the wound and then attention was taken to the distal clavicle excision. A transverse incision was made across the AC joint and the subperiosteal dissection was performed around the distal clavicle. There were osteophytes and joint erosion. Antonio elevator was used to reflect the fascia off the distal 1 cm of the clavicle anteriorly and posteriorly. 1 cm distal clavicle was removed with an oscillating saw. The wound was irrigated copiously. The deltotrapezial fascia was closed with eqvruk-cz-nuwsw #2 FiberWire sutures with secure fixation. The wound was irrigated subcutaneous tissue closed with 2-0 Vicryl sutures and skin was closed with stan. Attention was taken back to the deltopectoral wound. After further irrigation 2 Hemovac drains were placed. The deltopectoral interval was closed with ommfry-wh-cggly #1 Vicryl sutures. The subcutaneous tissues were closed with interrupted 2-0 Vicryl and the skin was closed with stan and a sterile dressing was applied. The patient tolerated the procedure well. Kurt DEVLIN my physician regulatory affairs assistant, participated as title i assistant and was integral part in all aspects of the procedure. He assisted in soft tissue retraction instrument management suture management and assisted in the subcutaneous and skin closure and will participate in the postoperative care the patient. I attest to the content of the Intraoperative Record and any orders documented therein. Any exceptions are noted below.
--- NOTE | 2023-01-30 16:23 | Anesthesiology Progress Note ---
Date of Service January 30, 2023 Anesthesia Post Procedure Vital Signs Vital Signs: Temp Pulse Resp BP Pulse Ox O2 Del Method O2 Flow Rate 01/30/23 16:05 36.0 C L 63 17 148/88 H 100 Oxymask 7 01/30/23 11:04 36.9 C 67 20 149/85 H 95 Room Air Pain Intensity Left Shoulder: Pain Intensity: 3 Transfer of Care Handoff Completed per policy Notes Mental Status: alert / awake / arousable and participated in evaluation Patient Amnestic to Procedure: Yes Nausea / Vomiting: adequately controlled Pain: adequately controlled Airway Patency, RR, SpO2: stable & adequate BP & HR: stable & adequate Hydration State: stable & adequate Anesthetic Complications: no major complications apparent and Pt Satisfied with anesthetic care
--- NOTE | 2023-01-30 16:31 | XRay Report ---
XR shoulder LT min 2V routine CLINICAL HISTORY: Post shoulder surgery COMPARISON: None FINDINGS: Alignment of the left shoulder arthroplasty is anatomic. There is no periprosthetic fractu re or unexpected radiopaque foreign body. Drains and skin stan are noted. IMPRESSION: Expected findings following left shoulder arthroplasty. ACT 112: Negative or not required by law. Electronically signed by: Mike Nevarez M.D. 01/30/2023 4:30 PM
[2023-01-30] MEDS ORDERED: ALBUTEROL HFA 8 GM INHALER INH PRN (17:09)
[2023-01-30] MEDS ORDERED: MAGNESIUM HYDROXIDE SUSP 30 ML UDC PO PRN (17:09)
[2023-01-30] MEDS ORDERED: NALOXONE HCL 0.4 MG/1 ML VIAL/CARP IV PRN (17:09)
[2023-01-30] MEDS ORDERED: PHARMACY GLYCEMIC MGMT CONSULT PRN (17:09)
[2023-01-30] MEDS ORDERED: HYDROmorphone INJ 0.5 MG/0.5 ML SYR IV PRN (17:09)
[2023-01-30] MEDS ORDERED: FEXOFENADINE HCL 180 MG TAB PO PRN (17:09)
[2023-01-30] MEDS ORDERED: oxyCODONE HCL IR 5 MG TAB (IMMEDIATE RELEASE) PO PRN (17:09)
[2023-01-30] MEDS ORDERED: bisacodyL 10 MG SUPP PR PRN (17:09)
[2023-01-30] MEDS ORDERED: FLUTICASONE PROPIONATE NA SPR 16 GM BTL PRN (17:09)
[2023-01-30] MEDS ORDERED: METHOCARBAMOL 500 MG TABLET PO PRN (17:09)
[2023-01-30] MEDS ORDERED: METOCLOPRAMIDE HCL INJ 5 MG/ML 2 ML VIAL IV PRN (17:09)
[2023-01-30] MEDS: SODIUM CHLORIDE 0.9% 1000ML 1,000 ML IV SCH ×2 (17:17→21:28)
--- NOTE | 2023-01-30 21:06 | Hospitalist Consultation ---
Date of Consultation January 30, 2023 Assessment & Plan (1) Paroxysmal supraventricular tachycardia by electrocardiogram (ECG): -CBC, BMP, troponin unremarkable. Mg pending at this time -Suspect pt's SVT episode is likely consequence of electrolyte abnormality/dysregulation in postoperative state, noted resolution without adenosine. EKG confirmed resolution of SVT -Ensure Mg > 2, K > 4, replete as needed -Continue telemetry monitoring -Hold pt's amlodipine and hydrochlorothiazide to avoid hypotension -Continue metoprolol tartrate 50 mg BID for negative inotropic effect -Lopressor PRN for HR > 110s (2) Primary osteoarthritis, left shoulder: -Per primary service Supervising Physician Co-Signing Physician Notes Attending addendum: I have physically seen this patient, have supervised the medical residents activities, and agree with the H&P unless as otherwise noted. Assessment and Plan: Paroxysmal supraventricular tachycardia/hypertension- Patient developed acute episode of increased heart rate down to 55 earlier this evening, which did spontaneously break as she was being transferred to the PCU for closer monitoring Order CBC with differential, chemistry profile, magnesium and troponin levels Potassium returned low at 1.3, which will be placed on IV basis Patient will get her evening dose of metoprolol tartrate 50 mg and continue 50 mg p.o. twice daily Lopressor 5 mg IV every 4 hours as needed heart rate greater than 110 Hold amlodipine and HCTZ for now, to allow potential increase in metoprolol prior to redosing if need be Diabetes mellitus- Hold glimepiride and metformin Place on Accu-Cheks with NovoLog SSI Hyperlipidemia- Continue atorvastatin and fenofibrate COPD- Continue albuterol sulfate HFA 2 puffs every 4 hours as needed Status post left shoulder surgery- Per primary surgical team History of Present Illness Reason for Consultation: Supraventricular tachycardia Attending Physician: Neil Polanco MD History of Present Illness 77 yo F admitted under primary orthopedic service for L shoulder arthroplasty on 01/30. At approximately 8:15 PM as pt was having q4 vitals taken, she was noted to have tachycardia to HR 150 with stable BP, RR and O2. She was not symptomatic. An EKG at bedside revealed SVT. Several labs were ordered and drawn including CBC, BMP, etc. I was alerted and came to evaluate the patient shortly thereafter. By the time I arrived to pt's room to evaluate her around 8:25 PM, SVT had resolved without intervention with spontaneous conversion to NSR and resolution of tachycardia. She denied any chest pain, headache, lightheadedness, palpitations or other acute complaints. She did report similar incidents in past in which she would experience transient arrhythmias during hospitalizations which would resolve briefly without intervention. I did review the EKG at bedside which demonstrated return to NSR without other ST change or QRS abnormality. The pt was subsequently transferred to PCU. Upon my re-evaluation of her after transfer, she was doing well with stable VS, asymptomatic and NSR on monitor. Allergies Allergy/AdvReac Type Severity Reaction Status Date / Time ibuprofen Allergy Mild Gastrointestinal Verified 01/30/23 11:16 Upset metronidazole [From Flagyl] Allergy Mild Gastrointestinal Verified 01/30/23 11:16 Upset propoxyphene [From Darvon] Allergy Mild Fatigued Verified 01/30/23 11:16 Home Medications Medication Instructions Recorded Confirmed Type albuterol sulfate 90 mcg/actuation 2 puffs inhalation Q4H PRN 05/14/19 01/30/23 History aerosol inhaler shortness of breath or wheezing #1 g blood sugar diagnostic (Prodigy No #10 ea 05/14/19 01/21/23 History Coding strips) coenzyme Q10 400 mg capsule 400 mg PO DAILY #90 caps 05/14/19 01/30/23 Rx fexofenadine 180 mg tablet 180 mg PO DAILY PRN allergy 05/14/19 01/30/23 Rx symptoms #90 tabs lancets 30 gauge (Easy Comfort #25 ea 05/14/19 01/21/23 History Lancets) [id number]-[id number]-wdjbmj-uouxnks-min 1 tab PO BID 05/14/19 01/30/23 History 3,300 unit-5 mg-200mg-75 unit tablet ER (ICaps) magnesium oxide 400 mg (241.3 mg 1,200 mg PO HS 11/05/19 01/30/23 History magnesium) tablet glucosamine 750 yd-hxkubwdfevt-uhy 1 tab PO BID #60 tabs 08/04/20 01/30/23 Rx no1 644 mg-C 30 mg-kera 1 mg tablet (Osteo Bi-Flex Triple Strength) methocarbamol 500 mg tablet See Rx Instructions PO QID PRN 03/07/22 01/30/23 Rx muscle spasm #360 tabs citalopram 10 mg tablet 10 mg PO QAM #90 tabs 04/24/22 01/30/23 Rx glimepiride 4 mg tablet 4 mg PO BID #180 tabs 07/23/22 01/30/23 Rx metoprolol tartrate 50 mg tablet 50 mg PO BID #180 tabs 07/23/22 01/30/23 Rx fenofibrate 54 mg tablet 54 mg PO DAILY #90 tabs 08/07/22 01/30/23 Rx amlodipine 2.5 mg tablet 2.5 mg PO DAILY #90 tabs 08/31/22 01/30/23 Rx fluticasone propionate 50 2 spray intranasal DAILY PRN 08/31/22 01/30/23 History mcg/actuation nasal Allergy Symptoms #16 grams spray,suspension celecoxib 200 mg capsule 200 mg PO DAILY #90 caps 09/18/22 01/30/23 Rx hydrochlorothiazide 25 mg tablet 25 mg PO DAILY #90 tabs 09/25/22 01/30/23 Rx gabapentin 300 mg capsule 300 mg PO TID #270 caps 10/08/22 01/30/23 Rx atorvastatin 40 mg tablet 40 mg PO DAILY #90 tabs 10/29/22 01/30/23 Rx metformin 500 mg tablet,extended 500 mg PO BID #180 tabs 11/06/22 01/30/23 Rx release 24 hr losartan 100 mg tablet 100 mg PO DAILY #90 tabs 12/04/22 01/30/23 Rx hydrocodone 5 mg-acetaminophen 325 See Rx Instructions PO QID PRN 12/21/22 01/30/23 Rx mg tablet pain #240 tabs lansoprazole 30 mg capsule,delayed 30 mg PO DAILY #90 caps 01/22/23 01/30/23 Rx release Patient History Medical History (Updated 01/31/23 @ 21:49 by Hanna Fowler MD) Allergic rhinitis Benign essential hypertension Cervicalgia Since fall in September- pain improved Chronic back pain Hx of scoliosis per patient Colon adenoma s/p polypectomy- no current issues Cystocele Wears pessary Depression GERD without esophagitis Controlled and stable History of concussion S/p fall September 2022- symptoms resolved History of fall September 2022 History of gastric ulcer No recent issues Hyperlipidemia Lumbar spinal stenosis Onychomycosis Noted to toes Paroxysmal supraventricular tachycardia by electrocardiogram (ECG) Primary osteoarthritis, left shoulder SVT (supraventricular tachycardia) Rate controlled, able to self break with valsalva Type 2 diabetes, controlled, with neuropathy Glucose fair control Urinary frequency Vaginal prolapse s/p pessary Surgical History H/O colonoscopy H/O: hysterectomy History of knee replacement Right Hx of cholecystectomy Hx of tonsillectomy Family History Father Colorectal cancer Sister Cervical cancer Denies family history of Ovarian cancer Breast cancer Lung cancer Social History Smoking Status: Never smoker Second Hand Exposure: No; Do You Dip or Chew Tobacco: No; Tobacco Cessation Education Requested by Patient: No Hx Alcohol Use: No Hx Substance Use: No Preferred Language: Danish Communication Ability: Effective Information Technology Instructor Required: No Beliefs That Will Affect Care: None marital status: / Current Living Situation: Alone current occupational status: retired How many Children do You have: 1 Other Information That Helps Us Care for You: No Feels Safe at Home: Yes Safety Concerns: Feels Safe At This Time Seatbelt Use: always Assistive Devices: Cane Assistive Devices Comment: partial upper/lower Review of Systems Review of Systems: Per HPI Physical Exam Physical Exam: General: Well-appearing, no acute distress HEENT: MMM, EOMI, no JVD CV: RRR, normal S1 and S2 Resp: CTAB, unlabored respirations Ext: no peripheral edema, normal peripheral pulses Results & Data Results & Data ([facility]) Vital Signs (Past 12 Hours) Vital Signs Temp Pulse Resp BP Pulse Ox O2 Del Method O2 Flow Rate 01/30/23 20:14 37.1 C 150 H 20 160/96 H 96 Room Air 01/30/23 19:00 36.7 C 68 18 140/71 95 Room Air 01/30/23 18:04 66 18 146/76 H 96 Room Air 01/30/23 17:30 60 18 149/84 H 96 Room Air 01/30/23 17:09 36.9 C 63 18 167/83 H 96 Room Air 01/30/23 16:35 36.4 C L 70 14 111/96 98 Room Air 01/30/23 16:40 36.4 C L 62 14 158/84 H 98 Room Air 01/30/23 16:25 36.0 C L 67 15 168/87 H 96 Room Air 0 01/30/23 16:15 36.0 C L 63 22 150/94 H 100 Room Air 0 01/30/23 16:05 36.0 C L 63 17 148/88 H 100 Oxymask 7 01/30/23 11:04 36.9 C 67 20 149/85 H 95 Room Air Resident Activity Tracking Resident Involvement: Resident Care Provided Care Provided: Adult Hospital Medicine
[2023-01-30] MEDS: INSULIN ASPART PER UNIT SC SCH (21:15)
[2023-01-30] MEDS: DOCUSATE SODIUM 100 MG CAP PO SCH (21:16)
[2023-01-30] MEDS: GABAPENTIN 300 MG CAP PO SCH (21:16)
[2023-01-30] MEDS: METOPROLOL TARTRATE 50 MG TAB PO SCH (21:17)
[2023-01-30] MEDS: MAGNESIUM OXIDE 400 MG TAB PO SCH (21:17)
[2023-01-30] MEDS: SENNA 8.6 MG TAB PO SCH (21:18)
[2023-01-30] MEDS: ACETAMINOPHEN 500 MG TAB PO SCH (21:18)
[2023-01-30 21:33] LABS: Albumin Globulin Ratio 1.9 (0.9-2); Albumin Level 4.3 gm/dl (3.4-5.0); BUN Creatinine Ratio 20.7 (10-20); Bilirubin,Total 0.5 mg/dl (0.2-1.0); Calcium 9.4 mg/dl (8.5-10.1); Creatinine Clr Calc Pharmacy 39.4 ml/min; Est GFR (African American) 52.6 ml/min; Est GFR (Non-African American) 45.4 ml/min; Globulin 2.3 gm/dl (2.5-4.0); Potassium 4.1 mmol/L (3.5-5.1); Total Protein 6.6 gm/dl (6.0-8.3)
[2023-01-30 21:39] LABS: Troponin I High Sensitivity 5.1 pg/ml (0-14)
[2023-01-30] MEDS: ceFAZolin 1000MG 1,000 MG/7.5 ML SYR IV SCH (21:40)
[2023-01-30 21:48] LABS: Basophils # (auto) 0.03 K/uL (0-0.2); Basophils % (auto) 0.3 %; Eosinophils # (auto) 0.02 K/uL (0-0.50); Eosinophils % (auto) 0.2 %; Hematocrit (blood only) 35.3 % (37.0-47.0); Hemoglobin 11.7 g/dl (12.0-16.0); Immature Granulocytes # (auto) 0.03 K/uL (0.01-0.20); Immature Granulocytes % (auto) 0.3 %; Lymphocytes # (auto) 2.25 K/uL (1.2-3.4); Lymphocytes % (auto) 21.7 %; Mean Corpuscular Hemoglobin 29.8 pg (25.0-34.0); Mean Corpuscular Hgb Conc 33.1 g/dL (32.0-36.0); Mean Corpuscular Volume 90.1 fL (80.0-100.0); Mean Platelet Volume 11.9 fL (9.4-12.4); Monocytes # (auto) 0.58 K/uL (0.11-0.59); Monocytes % (auto) 5.6 %; Neutrophils # (auto) 7.44 K/uL (1.40-6.50); Neutrophils % (auto) 71.9 %; Platelet Count 196 K/uL (130-400); RDW Coefficient of Variation 12.8 % (11.5-14.5); RDW Standard Deviation 41.8 fL (36.4-46.3); Red Blood Count 3.92 M/uL (4.20-5.40); White Blood Count 10.35 K/ul (4.8-10.8)
[2023-01-31] MEDS: MAGNESIUM SULFATE / D5W 1 GM/100 ML BAG IV SCH ×6 (00:48→08:59)
[2023-01-31] MEDS: ACETAMINOPHEN 500 MG TAB PO SCH ×3 (05:33→20:45)
[2023-01-31] MEDS: ceFAZolin 1000MG 1,000 MG/7.5 ML SYR IV SCH (05:34)
[2023-01-31 07:30] LABS: Basophils # (auto) 0.04 K/uL (0-0.2); Basophils % (auto) 0.4 %; Eosinophils # (auto) 0.01 K/uL (0-0.50); Eosinophils % (auto) 0.1 %; Hematocrit (blood only) 34.3 % (37.0-47.0); Hemoglobin 11.5 g/dl (12.0-16.0); Immature Granulocytes # (auto) 0.02 K/uL (0.01-0.20); Immature Granulocytes % (auto) 0.2 %; Lymphocytes # (auto) 1.65 K/uL (1.2-3.4); Lymphocytes % (auto) 17.7 %; Mean Corpuscular Hemoglobin 29.8 pg (25.0-34.0); Mean Corpuscular Hgb Conc 33.5 g/dL (32.0-36.0); Mean Corpuscular Volume 88.9 fL (80.0-100.0); Mean Platelet Volume 11.9 fL (9.4-12.4); Monocytes # (auto) 0.56 K/uL (0.11-0.59); Neutrophils # (auto) 7.02 K/uL (1.40-6.50); Neutrophils % (auto) 75.6 %; Platelet Count 185 K/uL (130-400); RDW Coefficient of Variation 12.6 % (11.5-14.5); RDW Standard Deviation 40.9 fL (36.4-46.3); Red Blood Count 3.86 M/uL (4.20-5.40)
[2023-01-31 07:52] LABS: BUN Creatinine Ratio 18.7 (10-20); Calcium 9.1 mg/dl (8.5-10.1); Creatinine Clr Calc Pharmacy 50.2 ml/min; Est GFR (African American) 70.5 ml/min; Est GFR (Non-African American) 60.9 ml/min; Magnesium 2.5 mg/dl (1.7-2.4); Potassium 3.9 mmol/L (3.5-5.1)
[2023-01-31] MEDS: DOCUSATE SODIUM 100 MG CAP PO SCH ×2 (08:12→20:48)
--- NOTE | 2023-01-31 08:15 | Orthopedic Progress Note ---
Date of Service January 31, 2023 Assessment & Plan (1) Primary osteoarthritis, left shoulder: Plan: Postop day 1 left total shoulder arthroplasty, distal clavicle excision -Pain management as written -DVT prophylaxis: SCDs -AM labs: Hemoglobin stable at 11.5 -PT/OT: No active motion of her shoulder. -Discharge planning: Plan on discharge home when stable. Likely discharge tomorrow. Admission and Anticipated Discharge Date Admission Date: January 30, 2023 Subjective Patient is postop day 1 left total shoulder and distal clavicle excision. [facility] due to SVT which seems to have resolved. She has been having some diarrhea however. Otherwise feeling okay. Denies chest pain, shortness of breath, nausea, headaches or dizziness. Review of Systems Review of Systems: All systems reviewed & are unremarkable except as noted in Subjective Physical Exam Physical Exam: Left shoulder: Dressing is clean, dry, intact. Hemovac in place. Sling in place. Fingers are mobile with good wrist extension. Distally neurovascular status and sensation grossly intact. Results & Data ([facility]) Vital Signs (Past 12 Hours) Vital Signs Temp Pulse Pulse Resp BP Pulse Ox O2 Del Method 01/31/23 07:27 77 01/31/23 06:52 36.7 C 76 18 159/82 H 94 Room Air 01/31/23 03:21 36.8 C 71 18 149/76 H 97 Room Air 01/30/23 23:36 80 01/30/23 22:54 37.0 C 75 20 129/72 96 Room Air 01/30/23 21:36 81 01/30/23 21:29 37.4 C 83 15 150/88 H 95 Room Air 01/30/23 20:14 37.1 C 150 H 20 160/96 H 96 Room Air Laboratory Results Lab Results 01/30/23 01/30/23 01/30/23 Range/Units 11:04 16:10 17:19 WBC (4.8-10.8) K/ul RBC (4.20-5.40) M/uL Hgb (12.0-16.0) g/dl Hct (37.0-47.0) % MCV (80.0-100.0) fL MCH (25.0-34.0) pg MCHC (32.0-36.0) g/dL RDW Std Deviation (36.4-46.3) fL RDW Coeff of Daisy (11.5-14.5) % Plt Count (130-400) K/uL MPV (9.4-12.4) fL Immature Gran % (Auto) % Neut % (Auto) % Lymph % (Auto) % [place] % (Auto) % Eos % (Auto) % Baso % (Auto) % Neut # (Auto) (1.40-6.50) K/uL Lymph # (Auto) (1.2-3.4) K/uL [place] # (Auto) (0.11-0.59) K/uL Eos # (Auto) (0-0.50) K/uL Baso # (Auto) (0-0.2) K/uL Immature Gran # (Auto) (0.01-0.20) K/uL Sodium (136-145) mmol/L Potassium (3.5-5.1) mmol/L Chloride (98-107) mmol/L Carbon Dioxide (21-32) mmol/L Anion Gap (3-11) BUN (6-23) mg/dl Creatinine (0.6-1.2) mg/dl Est Cr Clr Drug Dosing ml/min Est GFR ( Amer) ml/min Est GFR (Non-Af Amer) ml/min BUN/Creatinine Ratio (10-20) Glucose (70-99(Fasting)) mg/dl POC Glucose 158 H 127 H 128 H (70-99) mg/dl Calcium (8.5-10.1) mg/dl Magnesium (1.7-2.4) mg/dl Total Bilirubin (0.2-1.0) mg/dl AST (13-39) U/L ALT (7-52) U/L Alkaline Phosphatase (34-104) U/L Troponin I High Sens (0-14) pg/ml Total Protein (6.0-8.3) gm/dl Albumin (3.4-5.0) gm/dl Globulin (2.5-4.0) gm/dl Albumin/Globulin Ratio (0.9-2) SARS-CoV-2, RNA, NAAT (NEGATIVE) 01/30/23 01/30/23 01/30/23 Range/Units 20:19 21:04 21:04 WBC 10.35 (4.8-10.8) K/ul RBC 3.92 L (4.20-5.40) M/uL Hgb 11.7 L (12.0-16.0) g/dl Hct 35.3 L (37.0-47.0) % MCV 90.1 (80.0-100.0) fL MCH 29.8 (25.0-34.0) pg MCHC 33.1 (32.0-36.0) g/dL RDW Std Deviation 41.8 (36.4-46.3) fL RDW Coeff of Daisy 12.8 (11.5-14.5) % Plt Count 196 (130-400) K/uL MPV 11.9 (9.4-12.4) fL Immature Gran % (Auto) 0.3 % Neut % (Auto) 71.9 % Lymph % (Auto) 21.7 % [place] % (Auto) 5.6 % Eos % (Auto) 0.2 % Baso % (Auto) 0.3 % Neut # (Auto) 7.44 H (1.40-6.50) K/uL Lymph # (Auto) 2.25 (1.2-3.4) K/uL [place] # (Auto) 0.58 (0.11-0.59) K/uL Eos # (Auto) 0.02 (0-0.50) K/uL Baso # (Auto) 0.03 (0-0.2) K/uL Immature Gran # (Auto) 0.03 (0.01-0.20) K/uL Sodium 140 (136-145) mmol/L Potassium 4.1 (3.5-5.1) mmol/L Chloride 109 H (98-107) mmol/L Carbon Dioxide 24 (21-32) mmol/L Anion Gap 7 (3-11) BUN 24 H (6-23) mg/dl Creatinine 1.16 (0.6-1.2) mg/dl Est Cr Clr Drug Dosing 39.4 ml/min Est GFR ( Amer) 52.6 ml/min Est GFR (Non-Af Amer) 45.4 ml/min BUN/Creatinine Ratio 20.7 H (10-20) Glucose 168 H (70-99(Fasting)) mg/dl POC Glucose 166 H (70-99) mg/dl Calcium 9.4 (8.5-10.1) mg/dl Magnesium (1.7-2.4) mg/dl Total Bilirubin 0.5 (0.2-1.0) mg/dl AST 27 (13-39) U/L ALT 22 (7-52) U/L Alkaline Phosphatase 50 (34-104) U/L Troponin I High Sens 5.1 (0-14) pg/ml Total Protein 6.6 (6.0-8.3) gm/dl Albumin 4.3 (3.4-5.0) gm/dl Globulin 2.3 L (2.5-4.0) gm/dl Albumin/Globulin Ratio 1.9 (0.9-2) SARS-CoV-2, RNA, NAAT (NEGATIVE) 01/30/23 01/30/23 01/31/23 Range/Units 21:04 Unknown 06:55 WBC 9.30 (4.8-10.8) K/ul RBC 3.86 L (4.20-5.40) M/uL Hgb 11.5 L (12.0-16.0) g/dl Hct 34.3 L (37.0-47.0) % MCV 88.9 (80.0-100.0) fL MCH 29.8 (25.0-34.0) pg MCHC 33.5 (32.0-36.0) g/dL RDW Std Deviation 40.9 (36.4-46.3) fL RDW Coeff of Daisy 12.6 (11.5-14.5) % Plt Count 185 (130-400) K/uL MPV 11.9 (9.4-12.4) fL Immature Gran % (Auto) 0.2 % Neut % (Auto) 75.6 % Lymph % (Auto) 17.7 % [place] % (Auto) 6.0 % Eos % (Auto) 0.1 % Baso % (Auto) 0.4 % Neut # (Auto) 7.02 H (1.40-6.50) K/uL Lymph # (Auto) 1.65 (1.2-3.4) K/uL [place] # (Auto) 0.56 (0.11-0.59) K/uL Eos # (Auto) 0.01 (0-0.50) K/uL Baso # (Auto) 0.04 (0-0.2) K/uL Immature Gran # (Auto) 0.02 (0.01-0.20) K/uL Sodium (136-145) mmol/L Potassium (3.5-5.1) mmol/L Chloride (98-107) mmol/L Carbon Dioxide (21-32) mmol/L Anion Gap (3-11) BUN (6-23) mg/dl Creatinine (0.6-1.2) mg/dl Est Cr Clr Drug Dosing ml/min Est GFR ( Amer) ml/min Est GFR (Non-Af Amer) ml/min BUN/Creatinine Ratio (10-20) Glucose (70-99(Fasting)) mg/dl POC Glucose (70-99) mg/dl Calcium (8.5-10.1) mg/dl Magnesium 1.3 L (1.7-2.4) mg/dl Total Bilirubin (0.2-1.0) mg/dl AST (13-39) U/L ALT (7-52) U/L Alkaline Phosphatase (34-104) U/L Troponin I High Sens (0-14) pg/ml Total Protein (6.0-8.3) gm/dl Albumin (3.4-5.0) gm/dl Globulin (2.5-4.0) gm/dl Albumin/Globulin Ratio (0.9-2) SARS-CoV-2, RNA, NAAT NEGATIVE (NEGATIVE) 01/31/23 01/31/23 Range/Units 06:55 07:35 WBC (4.8-10.8) K/ul RBC (4.20-5.40) M/uL Hgb (12.0-16.0) g/dl Hct (37.0-47.0) % MCV (80.0-100.0) fL MCH (25.0-34.0) pg MCHC (32.0-36.0) g/dL RDW Std Deviation (36.4-46.3) fL RDW Coeff of Daisy (11.5-14.5) % Plt Count (130-400) K/uL MPV (9.4-12.4) fL Immature Gran % (Auto) % Neut % (Auto) % Lymph % (Auto) % [place] % (Auto) % Eos % (Auto) % Baso % (Auto) % Neut # (Auto) (1.40-6.50) K/uL Lymph # (Auto) (1.2-3.4) K/uL [place] # (Auto) (0.11-0.59) K/uL Eos # (Auto) (0-0.50) K/uL Baso # (Auto) (0-0.2) K/uL Immature Gran # (Auto) (0.01-0.20) K/uL Sodium 138 (136-145) mmol/L Potassium 3.9 (3.5-5.1) mmol/L Chloride 108 H (98-107) mmol/L Carbon Dioxide 23 (21-32) mmol/L Anion Gap 7 (3-11) BUN 17 (6-23) mg/dl Creatinine 0.91 (0.6-1.2) mg/dl Est Cr Clr Drug Dosing 50.2 ml/min Est GFR ( Amer) 70.5 ml/min Est GFR (Non-Af Amer) 60.9 ml/min BUN/Creatinine Ratio 18.7 (10-20) Glucose 223 H (70-99(Fasting)) mg/dl POC Glucose 225 H (70-99) mg/dl Calcium 9.1 (8.5-10.1) mg/dl Magnesium 2.5 H (1.7-2.4) mg/dl Total Bilirubin (0.2-1.0) mg/dl AST (13-39) U/L ALT (7-52) U/L Alkaline Phosphatase (34-104) U/L Troponin I High Sens (0-14) pg/ml Total Protein (6.0-8.3) gm/dl Albumin (3.4-5.0) gm/dl Globulin (2.5-4.0) gm/dl Albumin/Globulin Ratio (0.9-2) SARS-CoV-2, RNA, NAAT (NEGATIVE)
[2023-01-31] MEDS: INSULIN ASPART PER UNIT SC SCH ×4 (08:34→21:04)
[2023-01-31] MEDS: ATORVASTATIN 40 MG TAB PO SCH (08:37)
[2023-01-31] MEDS: CITALOPRAM 20 MG TAB PO SCH (08:39)
[2023-01-31] MEDS: GABAPENTIN 300 MG CAP PO SCH ×3 (08:40→20:43)
[2023-01-31] MEDS: LOSARTAN POTASSIUM 50 MG TAB PO SCH (08:40)
[2023-01-31] MEDS: PANTOprazole 40 MG TAB PO SCH (08:41)
[2023-01-31] MEDS: MULTIVITAMIN TAB PO SCH (08:41)
[2023-01-31] MEDS: METOPROLOL TARTRATE 50 MG TAB PO SCH ×2 (08:41→20:53)
[2023-01-31] MEDS ORDERED: amLODIPine BESYLATE 5 MG TAB PO SCH (09:00)
[2023-01-31] MEDS ORDERED: hydroCHLOROthiazide 25 MG TAB PO SCH (09:00)
--- NOTE | 2023-01-31 14:29 | Pharmacy Report ---
Pharmacy Glycemic Short Note 2 - Date of Service January 31, 2023 - Glycemic Short BSG Results (Last 24 hours): 01/30/23 01/30/23 01/30/23 16:10 17:19 20:19 Glucose POC Glucose 127 H 128 H 166 H 01/30/23 01/31/23 01/31/23 21:04 06:55 07:35 Glucose 168 H 223 H POC Glucose 225 H 01/31/23 11:34 Glucose POC Glucose 185 H OUTPATIENT ANTIDIABETIC REGIMEN: * Glimepiride 4mg PO BID * Metformin 500mg PO BID * HbA1c: 7.9% (01/02/23) ASSESSMENT: * Ms Umanzor is a 77yo diabetic F who is POD #1 s/p L total shoulder yesterday w/ Dr Polanco. * Oral anti-diabetic agents held on admission and patient was started on SQ Novolog for correctional/prandial coverage. * BSGs have been slightly elevated today, so Lantus added this afternoon for basal coverage. * Will continue to follow and adjust insulin regimen as indicated. PLAN FOR INPATIENT GLYCEMIC CONTROL: * Hold outpatient oral diabetes medications * Basal insulin * Lantus 10 units SQ x1 dose this afternoon * will re-assess tomorrow * Bolus insulin * NovoLog per scale ACHS or Q6hrs while NPO * Goal Range: Low 110 mg/dL - High 140 mg/dL * Correction Factor: 35 mg/dL/unit * Nutritional / Prandial insulin per carb ratio of 1 unit per 11 grams CHO consumed
[2023-01-31] MEDS ORDERED: LANTUS PER UNIT CHARGE SQ ONE ×2 (14:30→16:30)
--- NOTE | 2023-01-31 17:14 | Hospitalist Progress Note ---
Date of Service January 31, 2023 Assessment & Plan (1) Paroxysmal supraventricular tachycardia by electrocardiogram (ECG): Plan: Had an episode of SVT with rates in the 150s-160s on the evening of 01/30 that resolved spontaneously Associated with hypomagnesemia with magnesium of 1.3 -Suspect pt's SVT episode is likely consequence of electrolyte abnormality/dysregulation in postoperative state, noted resolution without adenosine. EKG confirmed resolution of SVT -Transferred to PCU for telemetry monitoring-no further SVT -She is aware of vagal maneuvers to perform if this happens at home -Magnesium was replaced and is now normalized-follow BMP and magnesium level in the morning -Continue to hold pt's amlodipine and hydrochlorothiazide to avoid hypotension, but HCTZ can also cause hypomagnesemia -Continue metoprolol tartrate 50 mg BID for negative inotropic effect -Lopressor PRN for HR > 110s (2) Primary osteoarthritis, left shoulder: Plan: -Postoperative care Per primary service -Discontinue bowel regimen as she is having multiple soft loose stools -Follow CBC in the morning (3) Benign essential hypertension: Plan: Blood pressures are mildly elevated Holding home amlodipine and HCTZ as above due to SVT Continue home losartan and metoprolol Follow BMP in the morning (4) GERD without esophagitis: Plan: Is on a PPI-this may be causing hypomagnesemia I suggested trial of famotidine 20 mg p.o. twice daily to patient and her son to try to prevent hypomagnesemia (5) Hyperlipidemia: Plan: Continue atorvastatin (6) Type 2 diabetes, controlled, with neuropathy: Plan: With hyperglycemia-pharmacy is managing Continue basal and bolus insulin Hemoglobin A1c well controlled at 7.1% (7) Hypomagnesemia: Plan: Replaced and now resolved Consider discontinuing PPI in favor of H2 sophia as above Consider discontinuing HCTZ Continue p.o. magnesium supplement Follow level in the morning Plan DVT prophylaxis-SCDs as per orthopedic service Disposition-remain on telemetry overnight and if no further SVT by tomorrow, medically stable for discharge Hospitalist service will follow along Admission and Anticipated Discharge Date Admission Date: January 30, 2023 Subjective Patient feeling well. Pain is controlled in the shoulder. She did feel a racing heartbeat last night during her episode of SVT but denied chest pain. No further episodes of SVT on telemetry. She denies lightheadedness or nausea. She is eating well. Moved her bowels several times through the night and is voiding frequently. Telemetry with normal sinus rhythm with rates in the 70s to 90s Physical Exam Constitutional: WD/WN, vitals as above Respiratory: normal respiratory effort, lungs clear to auscultation Cardiovascular: RRR, no murmur, no edema Musculoskeletal: Extremities: + extremities abnormal to inspection (LUE in shoulder sling, shoulder dressing CDI) Psychiatric: A+Ox3, euthymic affect Results & Data Results & Data ([facility]) Vital Signs (Past 12 Hours) Vital Signs Temp Pulse Pulse Resp BP Pulse Ox O2 Del Method 01/31/23 15:39 77 01/31/23 15:32 36.8 C 80 16 131/79 96 Room Air 01/31/23 15:13 36.9 C 81 18 114/68 96 Room Air 01/31/23 13:17 96 01/31/23 11:44 36.8 C 73 16 122/70 96 Room Air 01/31/23 08:16 36.7 C 75 16 134/70 94 Room Air 01/31/23 07:27 77 01/31/23 06:52 36.7 C 76 18 159/82 H 94 Room Air Laboratory Results CBC, BMP, magnesium level reviewed PG Care Time/CCT Total # of Minutes Spent Total Time Spent with Patient: Total time spent is greater than 50% in coordination of care (as documented) at patient's floor/unit and/or counseling patient: Coding Level of Care Code 30943 SUB INP/OBS CARE 2/35MIN Diagnoses Paroxysmal supraventricular tachycardia by electrocardiogram (ECG) I47.1 Primary osteoarthritis, left shoulder M19.012 Benign essential hypertension I10 GERD without esophagitis K21.9 Hyperlipidemia E78.5 Type 2 diabetes, controlled, with neuropathy E11.40 Hypomagnesemia E83.42
[2023-01-31] MEDS: MAGNESIUM OXIDE 400 MG TAB PO SCH (20:46)
[2023-01-31] MEDS: SENNA 8.6 MG TAB PO SCH (20:48)
--- NOTE | 2023-02-01 04:43 | Electrocardiogram Report ---
Test Reason : Blood Pressure : / mmHG Vent. Rate : 154 BPM Atrial Rate : 154 BPM P-R Int : 000 ms QRS Dur : 084 ms QT Int : 234 ms P-R-T Axes : 000 -04 191 degrees QTc Int : 374 ms Poor data quality, interpretation may be adversely affected Supraventricular tachycardia Abnormal ECG When compared with ECG of 02-JAN-2023 14:08, Vent. rate has increased BY 91 BPM Supraventricular tachycardia has replaced Sinus rhythm ST now depressed in Anterolateral leads T wave inversion now evident in Inferior leads T wave inversion now evident in Anterolateral leads Confirmed by Roque Davis ([id number] on 02/01/2023 4:42:59 AM Referred By: Neil Polanco Confirmed By:Roque Davis
--- NOTE | 2023-02-01 04:44 | Electrocardiogram Report ---
Test Reason : Blood Pressure : / mmHG Vent. Rate : 083 BPM Atrial Rate : 083 BPM P-R Int : 142 ms QRS Dur : 082 ms QT Int : 368 ms P-R-T Axes : 044 -03 063 degrees QTc Int : 432 ms Poor data quality, interpretation may be adversely affected Normal sinus rhythm Nonspecific ST and T wave abnormality Abnormal ECG When compared with ECG of 30-JAN-2023 20:21, Vent. rate has decreased BY 71 BPM Sinus rhythm has replaced Supraventricular tachycardia ST no longer depressed in Anterolateral leads T wave inversion no longer evident in Anterolateral leads Confirmed by Roque Davis ([id number] on 02/01/2023 4:43:53 AM Referred By: Neil Polanco Confirmed By:Roque Davis
--- NOTE | 2023-02-01 05:01 | Billing Data ---
Date of Service February 01, 2023 Coding Level of Care Code 50629 IN/OBS CONSULT LVL 4,60M
[2023-02-01] MEDS: ACETAMINOPHEN 500 MG TAB PO SCH (06:23)
[2023-02-01] MEDS: INSULIN ASPART PER UNIT SC SCH (07:53)
[2023-02-01] MEDS: METOPROLOL TARTRATE 50 MG TAB PO SCH (07:57)
[2023-02-01] MEDS: LOSARTAN POTASSIUM 50 MG TAB PO SCH (07:58)
[2023-02-01] MEDS: PANTOprazole 40 MG TAB PO SCH (07:58)
[2023-02-01] MEDS: GABAPENTIN 300 MG CAP PO SCH (07:58)
[2023-02-01] MEDS: CITALOPRAM 20 MG TAB PO SCH (07:59)
[2023-02-01] MEDS: MULTIVITAMIN TAB PO SCH (08:00)
[2023-02-01] MEDS: ATORVASTATIN 40 MG TAB PO SCH (08:00)
[2023-02-01 08:30] LABS: Basophils # (auto) 0.03 K/uL (0-0.2); Basophils % (auto) 0.3 %; Eosinophils # (auto) 0.01 K/uL (0-0.50); Eosinophils % (auto) 0.1 %; Hematocrit (blood only) 32.4 % (37.0-47.0); Hemoglobin 10.9 g/dl (12.0-16.0); Immature Granulocytes # (auto) 0.05 K/uL (0.01-0.20); Immature Granulocytes % (auto) 0.5 %; Lymphocytes % (auto) 16.3 %; Mean Corpuscular Hemoglobin 29.9 pg (25.0-34.0); Mean Corpuscular Hgb Conc 33.6 g/dL (32.0-36.0); Monocytes # (auto) 0.82 K/uL (0.11-0.59); Monocytes % (auto) 7.9 %; Neutrophils # (auto) 7.82 K/uL (1.40-6.50); Neutrophils % (auto) 74.9 %; Platelet Count 186 K/uL (130-400); RDW Coefficient of Variation 12.6 % (11.5-14.5); RDW Standard Deviation 41.2 fL (36.4-46.3); Red Blood Count 3.64 M/uL (4.20-5.40); White Blood Count 10.43 K/ul (4.8-10.8)
[2023-02-01 08:52] LABS: Anion Gap 6 (3-11); BUN Creatinine Ratio 18.3 (10-20); Blood Urea Nitrogen 17 mg/dl (6-23); Calcium 9.3 mg/dl (8.5-10.1); Carbon Dioxide 24 mmol/L (21-32); Chloride 106 mmol/L (98-107); Creatinine Clr Calc Pharmacy 49.2 ml/min; Est GFR (African American) 68.7 ml/min; Est GFR (Non-African American) 59.3 ml/min; Glucose 184 mg/dl (70-99(Fasting)); Sodium 136 mmol/L (136-145)
[2023-02-01] MEDS ORDERED: LANTUS PER UNIT CHARGE SQ SCH (09:00)
[2023-02-01 09:37] LABS: Potassium 3.8 mmol/L (3.5-5.1)
--- NOTE | 2023-02-01 11:06 | Orthopedic Progress Note ---
Date of Service February 01, 2023 Assessment & Plan (1) Primary osteoarthritis, left shoulder: Plan: Postop day 2 left total shoulder arthroplasty, distal clavicle excision -Pain management as written -DVT prophylaxis: SCDs -PT/OT: No active motion of her shoulder. -Orthopedically stable. Will check in with Dr. Fowler to discuss possible dc to home today. -Discharge planning: Plan on discharge home when stable. Plan for dc to home if ok with Med Service. Admission and Anticipated Discharge Date Admission Date: January 30, 2023 Subjective POD 2 Pt sitting in chair at bedside, awake, alert. No complaints this AM. Hoping to go home today. Pain controlled. No other instances of SVT overnight. Physical Exam Physical Exam: Dressings C/D/I. Nerve block has worn off. Good finger/wrist ROM. Sensation intact. Sling in place. Results & Data ([facility]) Vital Signs (Past 12 Hours) Vital Signs Temp Pulse Pulse Resp BP Pulse Ox O2 Del Method 02/01/23 07:48 37.0 C 78 18 144/69 H 94 Room Air 02/01/23 07:29 64 02/01/23 02:40 36.8 C 77 20 137/95 94 Room Air
--- NOTE | 2023-02-01 11:38 | Hospitalist Progress Note ---
Date of Service February 01, 2023 Assessment & Plan (1) Paroxysmal supraventricular tachycardia by electrocardiogram (ECG): Plan: Had an episode of SVT with rates in the 150s-160s on the evening of 01/30 that resolved spontaneously Associated with hypomagnesemia with magnesium of 1.3 She felt palpitations but no angina or syncope/presyncope -Suspect pt's SVT episode is likely consequence of electrolyte abnormality/dysregulation in postoperative state, noted resolution without adenosine. EKG confirmed resolution of SVT -Transferred to PCU for telemetry monitoring-no further SVT x 48 hours -She is aware of vagal maneuvers to perform if this happens at home -Magnesium was replaced and is now normalized -Continue to hold pt's hydrochlorothiazide as can cause hypomagnesemia -Continue metoprolol tartrate 50 mg BID for negative inotropic effect (2) Primary osteoarthritis, left shoulder: Plan: -Postoperative care Per primary service doing well, stable for dc from Ortho standpoint (3) Benign essential hypertension: Plan: Blood pressures are mildly elevated held home amlodipine and HCTZ as above due to SVT in case of hypotension but can restart amlodipine on discharge dc HCTZ for hypomagnesemia as above Continue home losartan and metoprolol follow BPs as outpt (4) GERD without esophagitis: Plan: Is on a PPI-this may be causing hypomagnesemia I suggested trial of famotidine 20 mg p.o. twice daily to patient and her son to try to prevent hypomagnesemia (5) Hyperlipidemia: Plan: Continue atorvastatin (6) Type 2 diabetes, controlled, with neuropathy: Plan: With hyperglycemia-pharmacy is managing-improved Hemoglobin A1c well controlled at 7.1% restart home glipizide on dc (7) Hypomagnesemia: Plan: Replaced and now resolved Consider discontinuing PPI in favor of H2 sophia as above discontinuing HCTZ Continue p.o. magnesium supplement Follow level as outpt Plan DVT prophylaxis-SCDs as per orthopedic service Disposition-medically stable for dc to home discussed with Ortho Admission and Anticipated Discharge Date Admission Date: January 30, 2023 Subjective Feeling great, no concerns. Pain controlled, moving bowels. No SVT on tele Denies CP, SOB Review of Systems Review of Systems: All systems reviewed & are unremarkable except as noted in HPI & below Physical Exam Constitutional: WD/WN, vitals as above Respiratory: normal respiratory effort, lungs clear to auscultation Cardiovascular: RRR, no murmur, no edema Musculoskeletal: Extremities: + extremities abnormal to inspection (LUE in shoulder sling, shoulder dressing CDI) Psychiatric: A+Ox3, euthymic affect Results & Data Results & Data ([facility]) Vital Signs (Past 12 Hours) Vital Signs Temp Pulse Pulse Resp BP Pulse Ox O2 Del Method 02/01/23 07:48 37.0 C 78 18 144/69 H 94 Room Air 02/01/23 07:29 64 02/01/23 02:40 36.8 C 77 20 137/95 94 Room Air Laboratory Results CBC, BMP , and magnesium levels reviewed PG Care Time/CCT Total # of Minutes Spent Total Time Spent with Patient: Total time spent is greater than 50% in coordination of care (as documented) at patient's floor/unit and/or counseling patient: Coding Level of Care Code 95772 SUB INP/OBS CARE 2/35MIN Diagnoses Paroxysmal supraventricular tachycardia by electrocardiogram (ECG) I47.1 Primary osteoarthritis, left shoulder M19.012 Benign essential hypertension I10 GERD without esophagitis K21.9 Hyperlipidemia E78.5 Type 2 diabetes, controlled, with neuropathy E11.40 Hypomagnesemia E83.42
--- NOTE | 2023-02-01 14:18 | Discharge Summary ---
Date of Service February 01, 2023 Admission HPI Per Admitting Provider 77 year old female with PMHx significant for DM2, HTN, high cholesterol, PSVT, ongoing left shoulder pain. Pain interfering with her daily activity. She has failed conservative measures and would like to proceed with surgical intervention. Patient denies headaches, sweats, fevers, chills, double vision, blurred vision, cough, sore throat, dysphagia, chest pain, sob, wheezing, n/v/d/c, numbness, tingling, fatigue, urinary symptoms, mood disorders. ROS positive for left shoulder pain and stiffness. Admission Exam Per Admitting Provider Constitutional: well developed and well nourished; no acute distress Eyes: PERRL, conjunctivae normal, anicteric sclerae ENMT: external ear and nose normal, oropharynx normal Neck: trachea midline, no thyromegaly Respiratory: normal respiratory effort, lungs clear to auscultation Cardiovascular: RRR, no murmur, no edema Musculoskeletal: Left shoulder: Painful ROM. FF to 100 degrees, abduction to 90 degrees. ER to 40 degrees. Crepitation with ROM. Diffuse tenderness. Positive impingement signs, positive cross body. Skin: no rashes, warm and dry Neurologic: patellar DTR's 2+ bilat, sensation intact Psychiatric: A+Ox3, euthymic affect Principal Diagnosis Left shoulder osteoarthritis Discharge Exam Dressings C/D/I. Nerve block has worn off. Good finger/wrist ROM. Sensation intact. Sling in place. Discharge Data Allergies Allergy/AdvReac Type Severity Reaction Status Date / Time ibuprofen Allergy Mild Gastrointestinal Verified 01/30/23 11:16 Upset metronidazole [From Flagyl] Allergy Mild Gastrointestinal Verified 01/30/23 11:16 Upset propoxyphene [From Darvon] Allergy Mild Fatigued Verified 01/30/23 11:16 Consultations 01/25/23 13:31 Consult Hospitalist Routine Procedures Performed Operation Date: 01/30/23 12:35 Actual Procedures p Left Total Shoulder Arthroplasty with Distal Clavicle Excision and Biceps Tenodesis(Left) - Neil Polanco MD Ordered Studies 01/30/23 05:00 US - OR guided needle placemen Routine Hospital Course (1) Primary osteoarthritis, left shoulder: Postop day 2 left total shoulder arthroplasty, distal clavicle excision -Pain management as written -DVT prophylaxis: SCDs -PT/OT: No active motion of her shoulder. -Orthopedically stable. Will check in with Dr. Fowler to discuss possible dc to home today. -Discharge planning: Plan on discharge home when stable. Plan for dc to home if ok with Med Service. Postop day 1 left total shoulder arthroplasty, distal clavicle excision -Pain management as written -DVT prophylaxis: SCDs -AM labs: Hemoglobin stable at 11.5 -PT/OT: No active motion of her shoulder. -Discharge planning: Plan on discharge home when stable. Likely discharge tomorrow. Lab Results 01/30/23 01/30/23 01/30/23 Range/Units 11:04 16:10 17:19 WBC (4.8-10.8) K/ul RBC (4.20-5.40) M/uL Hgb (12.0-16.0) g/dl Hct (37.0-47.0) % MCV (80.0-100.0) fL MCH (25.0-34.0) pg MCHC (32.0-36.0) g/dL RDW Std Deviation (36.4-46.3) fL RDW Coeff of Daisy (11.5-14.5) % Plt Count (130-400) K/uL MPV (9.4-12.4) fL Immature Gran % (Auto) % Neut % (Auto) % Lymph % (Auto) % Giles % (Auto) % Eos % (Auto) % Baso % (Auto) % Neut # (Auto) (1.40-6.50) K/uL Lymph # (Auto) (1.2-3.4) K/uL Giles # (Auto) (0.11-0.59) K/uL Eos # (Auto) (0-0.50) K/uL Baso # (Auto) (0-0.2) K/uL Immature Gran # (Auto) (0.01-0.20) K/uL Sodium (136-145) mmol/L Potassium (3.5-5.1) mmol/L Chloride (98-107) mmol/L Carbon Dioxide (21-32) mmol/L Anion Gap (3-11) BUN (6-23) mg/dl Creatinine (0.6-1.2) mg/dl Est Cr Clr Drug Dosing ml/min Est GFR ( Amer) ml/min Est GFR (Non-Af Amer) ml/min BUN/Creatinine Ratio (10-20) Glucose (70-99(Fasting)) mg/dl POC Glucose 158 H 127 H 128 H (70-99) mg/dl Calcium (8.5-10.1) mg/dl Magnesium (1.7-2.4) mg/dl Total Bilirubin (0.2-1.0) mg/dl AST (13-39) U/L ALT (7-52) U/L Alkaline Phosphatase (34-104) U/L Troponin I High Sens (0-14) pg/ml Total Protein (6.0-8.3) gm/dl Albumin (3.4-5.0) gm/dl Globulin (2.5-4.0) gm/dl Albumin/Globulin Ratio (0.9-2) SARS-CoV-2, RNA, NAAT (NEGATIVE) 01/30/23 01/30/23 01/30/23 Range/Units 20:19 21:04 21:04 WBC 10.35 (4.8-10.8) K/ul RBC 3.92 L (4.20-5.40) M/uL Hgb 11.7 L (12.0-16.0) g/dl Hct 35.3 L (37.0-47.0) % MCV 90.1 (80.0-100.0) fL MCH 29.8 (25.0-34.0) pg MCHC 33.1 (32.0-36.0) g/dL RDW Std Deviation 41.8 (36.4-46.3) fL RDW Coeff of Daisy 12.8 (11.5-14.5) % Plt Count 196 (130-400) K/uL MPV 11.9 (9.4-12.4) fL Immature Gran % (Auto) 0.3 % Neut % (Auto) 71.9 % Lymph % (Auto) 21.7 % Giles % (Auto) 5.6 % Eos % (Auto) 0.2 % Baso % (Auto) 0.3 % Neut # (Auto) 7.44 H (1.40-6.50) K/uL Lymph # (Auto) 2.25 (1.2-3.4) K/uL Giles # (Auto) 0.58 (0.11-0.59) K/uL Eos # (Auto) 0.02 (0-0.50) K/uL Baso # (Auto) 0.03 (0-0.2) K/uL Immature Gran # (Auto) 0.03 (0.01-0.20) K/uL Sodium 140 (136-145) mmol/L Potassium 4.1 (3.5-5.1) mmol/L Chloride 109 H (98-107) mmol/L Carbon Dioxide 24 (21-32) mmol/L Anion Gap 7 (3-11) BUN 24 H (6-23) mg/dl Creatinine 1.16 (0.6-1.2) mg/dl Est Cr Clr Drug Dosing 39.4 ml/min Est GFR ( Amer) 52.6 ml/min Est GFR (Non-Af Amer) 45.4 ml/min BUN/Creatinine Ratio 20.7 H (10-20) Glucose 168 H (70-99(Fasting)) mg/dl POC Glucose 166 H (70-99) mg/dl Calcium 9.4 (8.5-10.1) mg/dl Magnesium (1.7-2.4) mg/dl Total Bilirubin 0.5 (0.2-1.0) mg/dl AST 27 (13-39) U/L ALT 22 (7-52) U/L Alkaline Phosphatase 50 (34-104) U/L Troponin I High Sens 5.1 (0-14) pg/ml Total Protein 6.6 (6.0-8.3) gm/dl Albumin 4.3 (3.4-5.0) gm/dl Globulin 2.3 L (2.5-4.0) gm/dl Albumin/Globulin Ratio 1.9 (0.9-2) SARS-CoV-2, RNA, NAAT (NEGATIVE) 01/30/23 01/30/23 01/31/23 Range/Units 21:04 Unknown 06:55 WBC 9.30 (4.8-10.8) K/ul RBC 3.86 L (4.20-5.40) M/uL Hgb 11.5 L (12.0-16.0) g/dl Hct 34.3 L (37.0-47.0) % MCV 88.9 (80.0-100.0) fL MCH 29.8 (25.0-34.0) pg MCHC 33.5 (32.0-36.0) g/dL RDW Std Deviation 40.9 (36.4-46.3) fL RDW Coeff of Daisy 12.6 (11.5-14.5) % Plt Count 185 (130-400) K/uL MPV 11.9 (9.4-12.4) fL Immature Gran % (Auto) 0.2 % Neut % (Auto) 75.6 % Lymph % (Auto) 17.7 % Giles % (Auto) 6.0 % Eos % (Auto) 0.1 % Baso % (Auto) 0.4 % Neut # (Auto) 7.02 H (1.40-6.50) K/uL Lymph # (Auto) 1.65 (1.2-3.4) K/uL Giles # (Auto) 0.56 (0.11-0.59) K/uL Eos # (Auto) 0.01 (0-0.50) K/uL Baso # (Auto) 0.04 (0-0.2) K/uL Immature Gran # (Auto) 0.02 (0.01-0.20) K/uL Sodium (136-145) mmol/L Potassium (3.5-5.1) mmol/L Chloride (98-107) mmol/L Carbon Dioxide (21-32) mmol/L Anion Gap (3-11) BUN (6-23) mg/dl Creatinine (0.6-1.2) mg/dl Est Cr Clr Drug Dosing ml/min Est GFR ( Amer) ml/min Est GFR (Non-Af Amer) ml/min BUN/Creatinine Ratio (10-20) Glucose (70-99(Fasting)) mg/dl POC Glucose (70-99) mg/dl Calcium (8.5-10.1) mg/dl Magnesium 1.3 L (1.7-2.4) mg/dl Total Bilirubin (0.2-1.0) mg/dl AST (13-39) U/L ALT (7-52) U/L Alkaline Phosphatase (34-104) U/L Troponin I High Sens (0-14) pg/ml Total Protein (6.0-8.3) gm/dl Albumin (3.4-5.0) gm/dl Globulin (2.5-4.0) gm/dl Albumin/Globulin Ratio (0.9-2) SARS-CoV-2, RNA, NAAT NEGATIVE (NEGATIVE) 01/31/23 01/31/23 01/31/23 Range/Units 06:55 07:35 11:34 WBC (4.8-10.8) K/ul RBC (4.20-5.40) M/uL Hgb (12.0-16.0) g/dl Hct (37.0-47.0) % MCV (80.0-100.0) fL MCH (25.0-34.0) pg MCHC (32.0-36.0) g/dL RDW Std Deviation (36.4-46.3) fL RDW Coeff of Daisy (11.5-14.5) % Plt Count (130-400) K/uL MPV (9.4-12.4) fL Immature Gran % (Auto) % Neut % (Auto) % Lymph % (Auto) % Giles % (Auto) % Eos % (Auto) % Baso % (Auto) % Neut # (Auto) (1.40-6.50) K/uL Lymph # (Auto) (1.2-3.4) K/uL Giles # (Auto) (0.11-0.59) K/uL Eos # (Auto) (0-0.50) K/uL Baso # (Auto) (0-0.2) K/uL Immature Gran # (Auto) (0.01-0.20) K/uL Sodium 138 (136-145) mmol/L Potassium 3.9 (3.5-5.1) mmol/L Chloride 108 H (98-107) mmol/L Carbon Dioxide 23 (21-32) mmol/L Anion Gap 7 (3-11) BUN 17 (6-23) mg/dl Creatinine 0.91 (0.6-1.2) mg/dl Est Cr Clr Drug Dosing 50.2 ml/min Est GFR ( Amer) 70.5 ml/min Est GFR (Non-Af Amer) 60.9 ml/min BUN/Creatinine Ratio 18.7 (10-20) Glucose 223 H (70-99(Fasting)) mg/dl POC Glucose 225 H 185 H (70-99) mg/dl Calcium 9.1 (8.5-10.1) mg/dl Magnesium 2.5 H (1.7-2.4) mg/dl Total Bilirubin (0.2-1.0) mg/dl AST (13-39) U/L ALT (7-52) U/L Alkaline Phosphatase (34-104) U/L Troponin I High Sens (0-14) pg/ml Total Protein (6.0-8.3) gm/dl Albumin (3.4-5.0) gm/dl Globulin (2.5-4.0) gm/dl Albumin/Globulin Ratio (0.9-2) SARS-CoV-2, RNA, NAAT (NEGATIVE) 01/31/23 01/31/23 01/31/23 Range/Units 16:05 16:09 20:00 WBC (4.8-10.8) K/ul RBC (4.20-5.40) M/uL Hgb (12.0-16.0) g/dl Hct (37.0-47.0) % MCV (80.0-100.0) fL MCH (25.0-34.0) pg MCHC (32.0-36.0) g/dL RDW Std Deviation (36.4-46.3) fL RDW Coeff of Daisy (11.5-14.5) % Plt Count (130-400) K/uL MPV (9.4-12.4) fL Immature Gran % (Auto) % Neut % (Auto) % Lymph % (Auto) % Giles % (Auto) % Eos % (Auto) % Baso % (Auto) % Neut # (Auto) (1.40-6.50) K/uL Lymph # (Auto) (1.2-3.4) K/uL Giles # (Auto) (0.11-0.59) K/uL Eos # (Auto) (0-0.50) K/uL Baso # (Auto) (0-0.2) K/uL Immature Gran # (Auto) (0.01-0.20) K/uL Sodium (136-145) mmol/L Potassium (3.5-5.1) mmol/L Chloride (98-107) mmol/L Carbon Dioxide (21-32) mmol/L Anion Gap (3-11) BUN (6-23) mg/dl Creatinine (0.6-1.2) mg/dl Est Cr Clr Drug Dosing ml/min Est GFR ( Amer) ml/min Est GFR (Non-Af Amer) ml/min BUN/Creatinine Ratio (10-20) Glucose (70-99(Fasting)) mg/dl POC Glucose 291 H 247 H 153 H (70-99) mg/dl Calcium (8.5-10.1) mg/dl Magnesium (1.7-2.4) mg/dl Total Bilirubin (0.2-1.0) mg/dl AST (13-39) U/L ALT (7-52) U/L Alkaline Phosphatase (34-104) U/L Troponin I High Sens (0-14) pg/ml Total Protein (6.0-8.3) gm/dl Albumin (3.4-5.0) gm/dl Globulin (2.5-4.0) gm/dl Albumin/Globulin Ratio (0.9-2) SARS-CoV-2, RNA, NAAT (NEGATIVE) 02/01/23 02/01/23 02/01/23 Range/Units 07:14 07:33 07:33 WBC 10.43 (4.8-10.8) K/ul RBC 3.64 L (4.20-5.40) M/uL Hgb 10.9 L (12.0-16.0) g/dl Hct 32.4 L (37.0-47.0) % MCV 89.0 (80.0-100.0) fL MCH 29.9 (25.0-34.0) pg MCHC 33.6 (32.0-36.0) g/dL RDW Std Deviation 41.2 (36.4-46.3) fL RDW Coeff of Daisy 12.6 (11.5-14.5) % Plt Count 186 (130-400) K/uL MPV 12.0 (9.4-12.4) fL Immature Gran % (Auto) 0.5 % Neut % (Auto) 74.9 % Lymph % (Auto) 16.3 % Giles % (Auto) 7.9 % Eos % (Auto) 0.1 % Baso % (Auto) 0.3 % Neut # (Auto) 7.82 H (1.40-6.50) K/uL Lymph # (Auto) 1.70 (1.2-3.4) K/uL Giles # (Auto) 0.82 H (0.11-0.59) K/uL Eos # (Auto) 0.01 (0-0.50) K/uL Baso # (Auto) 0.03 (0-0.2) K/uL Immature Gran # (Auto) 0.05 (0.01-0.20) K/uL Sodium 136 (136-145) mmol/L Potassium TNP (3.5-5.1) mmol/L Chloride 106 (98-107) mmol/L Carbon Dioxide 24 (21-32) mmol/L Anion Gap 6 (3-11) BUN 17 (6-23) mg/dl Creatinine 0.93 (0.6-1.2) mg/dl Est Cr Clr Drug Dosing 49.2 ml/min Est GFR ( Amer) 68.7 ml/min Est GFR (Non-Af Amer) 59.3 ml/min BUN/Creatinine Ratio 18.3 (10-20) Glucose 184 H (70-99(Fasting)) mg/dl POC Glucose 182 H (70-99) mg/dl Calcium 9.3 (8.5-10.1) mg/dl Magnesium 2.0 (1.7-2.4) mg/dl Total Bilirubin (0.2-1.0) mg/dl AST (13-39) U/L ALT (7-52) U/L Alkaline Phosphatase (34-104) U/L Troponin I High Sens (0-14) pg/ml Total Protein (6.0-8.3) gm/dl Albumin (3.4-5.0) gm/dl Globulin (2.5-4.0) gm/dl Albumin/Globulin Ratio (0.9-2) SARS-CoV-2, RNA, NAAT (NEGATIVE) 02/01/23 02/01/23 Range/Units 09:01 11:20 WBC (4.8-10.8) K/ul RBC (4.20-5.40) M/uL Hgb (12.0-16.0) g/dl Hct (37.0-47.0) % MCV (80.0-100.0) fL MCH (25.0-34.0) pg MCHC (32.0-36.0) g/dL RDW Std Deviation (36.4-46.3) fL RDW Coeff of Daisy (11.5-14.5) % Plt Count (130-400) K/uL MPV (9.4-12.4) fL Immature Gran % (Auto) % Neut % (Auto) % Lymph % (Auto) % Giles % (Auto) % Eos % (Auto) % Baso % (Auto) % Neut # (Auto) (1.40-6.50) K/uL Lymph # (Auto) (1.2-3.4) K/uL Giles # (Auto) (0.11-0.59) K/uL Eos # (Auto) (0-0.50) K/uL Baso # (Auto) (0-0.2) K/uL Immature Gran # (Auto) (0.01-0.20) K/uL Sodium (136-145) mmol/L Potassium 3.8 (3.5-5.1) mmol/L Chloride (98-107) mmol/L Carbon Dioxide (21-32) mmol/L Anion Gap (3-11) BUN (6-23) mg/dl Creatinine (0.6-1.2) mg/dl Est Cr Clr Drug Dosing ml/min Est GFR ( Amer) ml/min Est GFR (Non-Af Amer) ml/min BUN/Creatinine Ratio (10-20) Glucose (70-99(Fasting)) mg/dl POC Glucose 228 H (70-99) mg/dl Calcium (8.5-10.1) mg/dl Magnesium (1.7-2.4) mg/dl Total Bilirubin (0.2-1.0) mg/dl AST 25 (13-39) U/L ALT (7-52) U/L Alkaline Phosphatase (34-104) U/L Troponin I High Sens (0-14) pg/ml Total Protein (6.0-8.3) gm/dl Albumin (3.4-5.0) gm/dl Globulin (2.5-4.0) gm/dl Albumin/Globulin Ratio (0.9-2) SARS-CoV-2, RNA, NAAT (NEGATIVE) Total Time Total Time Spent Total Time Spent (In Minutes): 20 Discharge Plan Discharge Items Patient Disposition: Home - Self-Care Reason For Visit: Left Shoulder Primary Osteoarthritis, Left Shoulde Discharge Diagnosis: Left Shoulder Osteoarthritis SVT Hypomagnesemia Condition on Discharge: Good Activity: Per Instructions section Weightbearing: Left non-weightbearing Non-emergency contact: Primary Care Provider and Surgeon Call non-emergency contact if: you have any medication questions, your pain is not controlled, your temperature is above 101.5, your wound has increased redness and your wound has increased drainage Follow-up/Referrals: Kalin Rodarte MD [Primary Care Provider] - 02/05/23 11:30 am (Please follow up within 1 week.) Neil Polanco MD [Surgeon] - (Follow up with Dr Polanco or his PA in 2 weeks from the day of your surgery for your first post operative visit) Diet: Carb Consistent or DM2 Addtl Attending Provider Instructions: ACTIVITY RECOMMENDATIONS: SELF CARE INSTRUCTIONS AFTER TOTAL SHOULDER ARTHROPLASTY A. You may do daily exercises as taught in physical therapy while in hospital. No lifting with the operative arm. Please schedule your outpatient physical therapy appointment to begin within 2-3 days after leaving the hospital. Specific restrictions will be written on your physical therapy prescription that is provided to you. B. You are to wear your sling/immobilizer at all times EXCEPT when performing your daily exercises, participating in physical therapy and for hygiene purposes. C. You may perform dry, daily dressing changes. Please keep your incision covered. You may shower 48 hours after surgery. Do not apply soap or any ointment/lotions directly over incision. Do not soak incision in bath tub/swimming pool. D. You may use ice as needed to operative shoulder. SPECIAL CARE INSTRUCTIONS: MEDICATION INSTRUCTIONS: *It is recommended you take Aspirin 325mg daily for four weeks post-op. VERY IMPORTANT TO READ AND REVIEW A. There are a few signs you need to watch for after you are home. Call [facility] [place] at [phone] if you experience any of the followin. Increased severe shoulder pain. Some pain is expected especially when you exercise. 2. Increased swelling in you shoulder or arm; pain or swelling in either upper extremity. 3. Any fluid drainage from the incision. 4. Shortness of breath or chest pain. B. Please call [facility] at [phone] if you have any questions or concerns about your operation or recovery. C. Call your physician if: 1. Temperature is greater than 101 degrees (F). 2. Pain is not relieved by prescribed pain medications. 3. Increase drainage or redness from incision. 4. Unanswered questions or concerns. FOLLOW UP VISIT: Please call [facility] at [phone] to schedule a follow up appointment with Dr. Polanco or his PA in 12-14 days from your surgery date. Addtl Regroover Provider Instructions: You had SVT (rapid heart rate) while you were here after surgery. This resolved on its own. You also have low magnesium levels. This could be from your HCTZ water pill. Your magnesium was replaced and this improved. Your HCTZ pill was discontinued. You can also have trouble absorbing magnesium while taking medication like Prevacid. You could trial famotidine (pepcid) 20mg twice a day instead of Prevacid and see if your acid reflux remains controlled. Pending Studies at Discharge: No Stand-Alone Forms: My [facility], Smoking Cessation Medications and DC Order Prescriptions: Continued methocarbamol 500 mg tablet See Rx Instructions PO QID PRN (Reason: muscle spasm) Qty: 360 3RF Dose Instruction: 1-2 TAB PO QID PRN; Rx Instructions: 1-2 TAB PO QID PRN; citalopram 10 mg tablet 10 mg PO QAM Qty: 90 3RF Rx Instructions: for mood. fenofibrate 54 mg tablet 54 mg PO DAILY Qty: 90 3RF amlodipine 2.5 mg tablet 2.5 mg PO DAILY Qty: 90 3RF celecoxib 200 mg capsule 200 mg PO DAILY Qty: 90 3RF gabapentin 300 mg capsule 300 mg PO TID Qty: 270 3RF atorvastatin 40 mg tablet 40 mg PO DAILY Qty: 90 3RF metformin 500 mg tablet extended release 24 hr 500 mg PO BID Qty: 180 2RF Rx Instructions: Take with meals. losartan 100 mg tablet 100 mg PO DAILY Qty: 90 3RF hydrocodone-acetaminophen 5-325 mg tablet See Rx Instructions PO QID PRN (Reason: pain) Qty: 240 0RF Dose Instruction: 1-2 TAB PO QID PRN; Rx Instructions: 1-2 TAB PO QID PRN; lansoprazole 30 mg capsule,delayed release(DR/EC) 30 mg PO DAILY Qty: 90 3RF coenzyme Q10 400 mg capsule 400 mg PO DAILY Qty: 90 3RF fexofenadine 180 mg tablet 180 mg PO DAILY PRN (Reason: allergy symptoms) Qty: 90 3RF (DME) lancets [Easy Comfort Lancets] 30 gauge misc See Dose Instructions .ROUTE .MEDSUPPLY Qty: 25 Rx Instructions: CHECK SUGARS TWICE A DAY ICaps [id number] sujo-hp-ko-unit tablet extended release 1 tab PO BID (DME) Prodigy No Coding strip See Dose Instructions .ROUTE .MEDSUPPLY Qty: 10 Rx Instructions: check sugar once daily as directed albuterol sulfate 90 mcg/actuation HFA aerosol inhaler 2 puffs inhalation Q4H PRN (Reason: shortness of breath or wheezing) Qty: 1 fluticasone propionate 50 mcg/actuation spray,suspension 2 spray intranasal DAILY PRN (Reason: Allergy Symptoms) Qty: 16 glimepiride 4 mg tablet 4 mg PO BID Qty: 180 3RF Rx Instructions: take prior to breakfast and supper. metoprolol tartrate 50 mg tablet 50 mg PO BID Qty: 180 3RF magnesium oxide 400 mg (241.3 mg magnesium) tablet 1,200 mg PO HS Osteo Bi-Flex Triple Strength 750 mg-644 mg- 30 mg-1 mg tablet 1 tab PO BID Qty: 60 0RF Rx Instructions: give with meal/snack Discontinued hydrochlorothiazide 25 mg tablet 25 mg PO DAILY Qty: 90 3RF Discharge Orders: Discharge Order (Routine); Ordered 02/01/23 Ordered By: Leobardo Puente Admission Data Admit Date/Time: 01/30/23 16:05 Attending Provider: Neil Polanco Admit Provider: Neil Polanco Primary Care Provider: Kalin Rodarte Other Providers: Hanna Fowler ; [address] ; [facility] Other Interventions: Discharge Summary Assessment (RN) Last Done: 02/01/23 11:39
== END 2023-02-01 12:29 | disposition home or self-care (01) | DRG 483 ==
LOC: ASU 10:25 → 3E 16:05 → 2S 20:50

== ENCOUNTER 2024-12-09 05:17 | Observation (INO) ==
--- NOTE | 2024-11-05 15:06 | PAT Medication Instructions ---
Medication Instructions Date of Service November 05, 2024 Home Medications Medication Instructions Recorded glucosamine 750 un-spootnrbukl-dgz 1 tab PO BID #60 tabs 08/04/20 no1 644 mg-C 30 mg-kera 1 mg tablet (Osteo Bi-Flex Triple Strength) loratadine 10 mg tablet (Allergy 10 mg PO DAILY #30 tabs 02/06/23 Relief (loratadine)) glimepiride 4 mg tablet 4 mg PO BID #180 tabs 09/03/23 clobetasol 0.05 % topical cream 1 applic topical DAILY #30 grams 11/04/23 pen needle, diabetic 33 gauge x #100 ea 12/24/23 3/16" (Comfort EZ Pen [place]) MELOX/KILLIAN/LIDOCAINE/PRILOCAINE See Rx Instructions topical QID 03/26/24 (29AL) PRN pain #120 grams insulin glargine 100 unit/mL (3 See Rx Instructions subcut QPM #15 03/26/24 mL) subcutaneous pen mL Wheeled Walker #1 ea 04/30/24 metformin 500 mg tablet,extended 1,000 mg (2 x 500 mg) PO BID #360 05/10/24 release 24 hr tabs metoprolol tartrate 50 mg tablet 50 mg PO BID #180 tabs 07/13/24 blood sugar diagnostic (Prodigy No #100 ea 07/23/24 Coding strips) lancets 28 gauge (Prodigy Twist #100 ea 07/23/24 Top Lancet) hydrocodone 5 mg-acetaminophen 325 1 - 2 tab PO QID PRN Pain #240 tabs 09/18/24 mg tablet glucosamine 750 mb-bdyqfvqbwsw-nve no1 644 mg-C 30 mg-kera 1 mg tablet (Osteo Bi-Flex Triple Strength) 1 tab PO BID fluticasone propionate 50 mcg/actuation nasal spray,suspension 2 spray intranasal DAILY PRN Allergy Symptoms ascorbate calcium (vitamin C) 500 mg tablet 500 mg PO DAILY cholecalciferol (vitamin D3) 25 mcg (1,000 unit) capsule 25 mcg PO DAILY loratadine 10 mg tablet (Allergy Relief (loratadine)) 10 mg PO DAILY dmlpxkkl-egwh-zqkw 8 mg-folic 400 mcg-K 50 mcg-lutein 300 mcg tablet (Centrum Silver Women) 1 tab PO DAILY zinc 30 mg PO DAILY cinnamon 1,000 mg PO DAILY guaifenesin 400 mg tablet (Mucus Relief) 400 mg PO ONCE PRN congestion nervive 1 tab PO DAILY glimepiride 4 mg tablet 4 mg PO BID coenzyme Q10 400 mg capsule 800 mg PO DAILY clobetasol 0.05 % topical cream 1 applic topical DAILY MELOX/KILLIAN/LIDOCAINE/PRILOCAINE (29AL) See Rx Instructions topical QID PRN pain celecoxib 200 mg capsule 200 mg PO QAM insulin glargine 100 unit/mL (3 mL) subcutaneous pen See Rx Instructions subcut QPM vitamins A,C,A-zzdj-zezajq 4,296 mcg-226 mg-90 mg capsule (PreserVision AREDS) 1 cap PO BID metformin 500 mg tablet,extended release 24 hr 1,000 mg (2 x 500 mg) PO BID metoprolol tartrate 50 mg tablet 50 mg PO BID hydrocodone 5 mg-acetaminophen 325 mg tablet 1 - 2 tab PO QID PRN Pain amlodipine 2.5 mg tablet 2.5 mg PO QAM atorvastatin 40 mg tablet 40 mg PO QPM duloxetine 30 mg capsule,delayed release (Cymbalta) 30 mg PO QAM fexofenadine 180 mg tablet 180 mg PO DAILY gabapentin 300 mg capsule (Neurontin) 300 mg PO TID hydrochlorothiazide 25 mg tablet 25 mg PO QAM lansoprazole 30 mg capsule,delayed release (Prevacid) 30 mg PO QAM losartan 100 mg tablet 100 mg PO QAM methocarbamol 500 mg tablet 500 mg PO QID PRN muscle spasm Continue as directed fluticasone propionate 50 mcg/actuation nasal spray,suspension 2 spray intranasal DAILY PRN Allergy Symptoms ASK your surgeon for instructions celecoxib 200 mg capsule 200 mg PO QAM STOP taking 2 weeks before surgery glucosamine 750 fu-yugkxunptrr-yhk no1 644 mg-C 30 mg-kera 1 mg tablet (Osteo Bi-Flex Triple Strength) 1 tab PO BID cinnamon 1,000 mg PO DAILY zinc 30 mg PO DAILY nervive 1 tab PO DAILY coenzyme Q10 400 mg capsule 800 mg PO DAILY vitamins A,C,Q-iwwg-rgjfjl 4,296 mcg-226 mg-90 mg capsule (PreserVision AREDS) 1 cap PO BID STOP taking 24 hours before surgery clobetasol 0.05 % topical cream 1 applic topical DAILY MELOX/KILLIAN/LIDOCAINE/PRILOCAINE (29AL) See Rx Instructions topical QID PRN pain DO NOT take the morning of surgery ascorbate calcium (vitamin C) 500 mg tablet 500 mg PO DAILY cholecalciferol (vitamin D3) 25 mcg (1,000 unit) capsule 25 mcg PO DAILY loratadine 10 mg tablet (Allergy Relief (loratadine)) 10 mg PO DAILY ucmxhmpz-tskt-thnd 8 mg-folic 400 mcg-K 50 mcg-lutein 300 mcg tablet (Centrum Silver Women) 1 tab PO DAILY guaifenesin 400 mg tablet (Mucus Relief) 400 mg PO ONCE PRN congestion glimepiride 4 mg tablet 4 mg PO BID metformin 500 mg tablet,extended release 24 hr 1,000 mg (2 x 500 mg) PO BID fexofenadine 180 mg tablet 180 mg PO DAILY hydrochlorothiazide 25 mg tablet 25 mg PO QAM losartan 100 mg tablet 100 mg PO QAM Take morning of surgery With a small sip of water, OTHERWISE NOTHING TO EAT OR DRINK AFTER MIDNIGHT: metoprolol tartrate 50 mg tablet 50 mg PO BID hydrocodone 5 mg-acetaminophen 325 mg tablet 1 - 2 tab PO QID PRN Pain (if needed) amlodipine 2.5 mg tablet 2.5 mg PO QAM duloxetine 30 mg capsule,delayed release (Cymbalta) 30 mg PO QAM gabapentin 300 mg capsule (Neurontin) 300 mg PO TID lansoprazole 30 mg capsule,delayed release (Prevacid) 30 mg PO QAM methocarbamol 500 mg tablet 500 mg PO QID PRN muscle spasm (if needed) Take evening before surgery guaifenesin 400 mg tablet (Mucus Relief) 400 mg PO ONCE PRN congestion (if nee ded) glimepiride 4 mg tablet 4 mg PO BID insulin glargine 100 unit/mL (3 mL) subcutaneous pen See Rx Instructions subcut QPM metformin 500 mg tablet,extended release 24 hr 1,000 mg (2 x 500 mg) PO BID metoprolol tartrate 50 mg tablet 50 mg PO BID hydrocodone 5 mg-acetaminophen 325 mg tablet 1 - 2 tab PO QID PRN Pain (if needed) atorvastatin 40 mg tablet 40 mg PO QPM duloxetine 30 mg capsule,delayed release (Cymbalta) 30 mg PO QAM gabapentin 300 mg capsule (Neurontin) 300 mg PO TID methocarbamol 500 mg tablet 500 mg PO QID PRN muscle spasm (if needed) Other Notes If you have any questions please call us at [phone] or [phone] or [phone] or [phone]
--- NOTE | 2024-11-11 15:17 | Anesthesiology Consultation ---
Date of Service November 11, 2024 Assessment & Plan (1) Encounter for pre-operative examination: Chart Review Chart Review: Acceptable Risk for Surgery (pending PCP clearance ) and Patient seen in Pre Admission Testing - Awaiting PCP clearance 11/12/24 ([place])- workload note sent to PCP to address hyperkalemia (per PCP response 11/14/24- patient holding Celebrex and getting K rechecked) - Check BSG AM DOS Severe scoliosis- patient educated SAB would be attempted by GA will be second option if needed Dexcom to upper extremity - Patient is NOT an ideal OPJ candidate (currently 23 hour obs) Per PAT appt on 11/11/24, no recent illness/disease exposures, illness related symptoms, or recent illness/disease positive tests. Will leave to surgeon's discretion if preop Covid testing needed Patient seen by cardio 11/06/24= Patient seen for preop evaluation. "She is currently stable and asymptomatic from a cardiovascular standpoint with no anginal symptoms occurring at >4 METS of activity. She has no evidence of CHF or significant valvular abnormality. She is therefore at an acceptable risk to proceed with upcoming surgery without any additional cardiovascular testing or intervention." Left Total Shoulder Arthroplasty, DCR, Biceps Tenodesis 01/30/23= Done under GA with Grade 1 view with MAC #3. ETT #7.0. Atraumatic x 1 History Surgery Operation Date: 12/09/24 09:55 Proposed Procedures p Left Total Knee Arthroplasty - Neil Polanco MD Height/Weight Height: 5 ft 4 in Weight: 70.4 kg Allergies Allergy/AdvReac Type Severity Reaction Status Date / Time ibuprofen AdvReac Intermediate Gastrointestinal Verified 11/12/24 15:02 Upset metronidazole [From Flagyl] AdvReac Intermediate Gastrointestinal Verified 11/12/24 15:02 Upset propoxyphene [From Darvon] AdvReac Mild Fatigued Verified 11/12/24 15:02 Medications Home Medications Medication Instructions Recorded Confirmed Last Taken glucosamine 750 op-ibgqsziuwsx-gwu 1 tab PO BID #60 tabs 08/04/20 11/12/24 1 Week Ago no1 644 mg-C 30 mg-kera 1 mg ~01/23/23 tablet (Osteo Bi-Flex Triple Strength) fluticasone propionate 50 2 spray intranasal DAILY PRN 08/31/22 11/12/2423 07:00 mcg/actuation nasal Allergy Symptoms #16 grams spray,suspension ascorbate calcium (vitamin C) 500 500 mg PO DAILY 02/06/23 11/12/24 Unknown mg tablet cholecalciferol (vitamin D3) 25 25 mcg PO DAILY 02/06/23 11/12/24 Unknown mcg (1,000 unit) capsule loratadine 10 mg tablet (Allergy 10 mg PO DAILY #30 tabs 02/06/23 11/12/24 Unknown Relief (loratadine)) pkgfgksf-brtd-hsdm 8 mg-folic 400 1 tab PO DAILY 02/06/23 11/12/24 Unknown mcg-K 50 mcg-lutein 300 mcg tablet (Centrum Silver Women) zinc 30 mg PO DAILY 02/06/23 11/12/24 Unknown cinnamon 1,000 mg PO DAILY 02/26/23 11/12/24 Unknown guaifenesin 400 mg tablet (Mucus 400 mg PO ONCE PRN congestion 02/26/23 11/12/24 Unknown Relief) nervive 1 tab PO DAILY 02/26/23 11/12/24 Unknown glimepiride 4 mg tablet 4 mg PO BID #180 tabs 09/03/23 11/12/24 Unknown coenzyme Q10 400 mg capsule 800 mg PO DAILY 09/13/23 11/12/24 Unknown clobetasol 0.05 % topical cream 1 applic topical DAILY #30 grams 11/04/23 11/12/24 Unknown pen needle, diabetic 33 gauge x #100 ea 12/24/23 11/12/24 Unknown 3/16" (Comfort EZ Pen [place]) MELOX/KILLIAN/LIDOCAINE/PRILOCAINE See Rx Instructions topical QID 03/26/24 11/12/24 Unknown (29AL) PRN pain #120 grams celecoxib 200 mg capsule 200 mg PO QAM 03/26/24 11/12/24 Unknown insulin glargine 100 unit/mL (3 See Rx Instructions subcut QPM #15 03/26/24 11/12/24 Unknown mL) subcutaneous pen mL vitamins A,C,P-rbjb-thnvik 4,296 1 cap PO BID 04/24/24 11/12/24 Unknown mcg-226 mg-90 mg capsule (PreserVision AREDS) Bárbara Valdez #1 ea 04/30/24 11/12/24 Unknown metformin 500 mg tablet,extended 1,000 mg (2 x 500 mg) PO BID #360 05/10/24 11/12/24 Unknown release 24 hr tabs metoprolol tartrate 50 mg tablet 50 mg PO BID #180 tabs 07/13/24 11/12/24 Unknown blood sugar diagnostic (Prodigy No #100 ea 07/23/24 11/12/24 Unknown Coding strips) lancets 28 gauge (Prodigy Twist #100 ea 07/23/24 11/12/24 Unknown Top Lancet) hydrocodone 5 mg-acetaminophen 325 1 - 2 tab PO QID PRN Pain #240 tabs 09/18/24 11/12/24 Unknown mg tablet amlodipine 2.5 mg tablet 2.5 mg PO QAM 11/03/24 11/12/24 Unknown atorvastatin 40 mg tablet 40 mg PO QPM 11/03/24 11/12/24 Unknown duloxetine 30 mg capsule,delayed 30 mg PO QAM 11/03/24 11/12/24 Unknown release (Cymbalta) fexofenadine 180 mg tablet 180 mg PO DAILY 11/03/24 11/12/24 Unknown gabapentin 300 mg capsule 300 mg PO TID 11/03/24 11/12/24 Unknown (Neurontin) hydrochlorothiazide 25 mg tablet 25 mg PO QAM 11/03/24 11/12/24 Unknown lansoprazole 30 mg capsule,delayed 30 mg PO QAM 11/03/24 11/12/24 Unknown release (Prevacid) losartan 100 mg tablet 100 mg PO QAM 11/03/24 11/12/24 Unknown methocarbamol 500 mg tablet 500 mg PO QID PRN muscle spasm 11/03/24 11/12/24 Unknown Past Medical History Medical History Atopic dermatitis Depression History of diverticulosis Found on colonoscopy - no hospitalizations no recent diverticulitis History of gastric ulcer No recent issues History of PSVT (paroxysmal supraventricular tachycardia) Stable - follows with Dr Ely - well controlled with metoprolol Hx of fall - due to knee and back pain/instability per patient -multiple times in the last 6 months most recently 09/30/24 as per patient - r/t left knee injection done earlier 2023 Osteoarthritis Postoperative anemia Presence of pessary Urinary frequency Urinary retention Vaginal prolapse s/p pessary Exercise / Class Metabolic Activity III < 4 Walking/Shop/Light housework (no chest pain or SOB with flat surface ambulation- uses walker or cane for stability with ambulation ) Past Family History Family History Father Colorectal cancer Sister Cervical cancer Denies family history of Ovarian cancer Breast cancer Lung cancer Past Surgical History Surgical History H/O colonoscopy H/O: hysterectomy History of knee replacement Right Hx of cholecystectomy Hx of tonsillectomy Status post reverse total shoulder replacement Left TSA, Arthroscopy with Distal Clavicle Excision, Subacromial Decompression (01/30/23): Grade 1 view, MAC#3, ETT 7.0 + regional at [facility] Past Anesthesia History No Hx of Anesthesia Complications and No Family Hx of Anesthesia Complications History of PONV No Hx of PONV and No Hx of Motion Sickness Social History Smoking Status: Never smoker Do You Dip or Chew Tobacco: No Hx Alcohol Use: No Hx Substance Use: No substance use type: does not use Review of Systems Patient denies chest pain, shortness of breath, dyspnea on exertion, cough, wheezing, palpitations. No hx of seizures, stroke, [place], apnea/snoring. No hx of blood clots or blood transfusions Physical Exam Vital Signs VITALS BP 132/71 P 76 TEMP 98.2 SP02 94% RESP 16 Constitutional no acute distress ENMT Mouth: no TMJ clicking Thyromental Distance: > or= 3.5 Finger Breadths (3.5) Mallampati Class: II Partial dentures on bottom and top Neck + limited neck extension (mild) Respiratory normal respiratory effort; no respiratory distress Auscultation: lungs clear to auscultation bilaterally; no wheezes Cardiovascular Rate/Rhythm: regular rate and regular rhythm Heart Sounds: no murmur Vessels: no carotid bruit Musculoskeletal Spine: no pain with cervical ROM Extremities: extremities normal to inspection Psychiatric Orientation: alert Lab Results Anesthesia Preop Results Results Anesthesia Widget: WBC 8.25 K/ul (4.8-10.8) 11/11/24 Hgb 12.1 g/dl (12.0-16.0) 11/11/24 Hct 36.9 % (37.0-47.0) L 11/11/24 Plt 205 K/uL (130-400) 11/11/24 Na 139 mmol/L (136-145) 11/11/24 K 5.7 mmol/L (3.5-5.1) H 11/11/24 Cl 109 mmol/L (98-107) H 11/11/24 CO2 22 mmol/L (21-32) 11/11/24 BUN 36 mg/dl (6-23) H 11/11/24 Creat 0.98 mg/dl (0.6-1.2) 11/11/24 Glucose Level 71 mg/dl (70-99(Fasting)) 11/11/24 PT 11.0 Seconds (9.0-12.0) 11/11/24 PTT 30 Seconds (21-31) 11/11/24 INR 1.0 (0.9-1.1) 11/11/24 HA1c 7.5 % (4.5-5.6) H 11/11/24 Urine Color Yellow 11/12/24 Urine Appearance Clear (Clear) 11/12/24 Urine pH 5.0 (4.5-7.5) 11/12/24 Urine Specific [place] 1.023 (1.000-1.030) 11/12/24 Urine Protein Negative (Negative) 11/12/24 Urine Glucose (UA) Negative (Negative) 11/12/24 Urine Ketones Negative (Negative) 11/12/24 Urine Blood Negative (Negative) 11/12/24 Urine Nitrite Negative (Negative) 11/12/24 Urine Bilirubin Negative (Negative) 11/12/24 Urine Urobilinogen Negative (Negative) 11/12/24 Urine Leukocyte Esterase Negative (Negative) 11/12/24 Blood Type A Positive 11/11/24 Antibody Screen NEGATIVE 11/11/24 Testing Laboratory Results Hyperkalemia- will send workload note to PCP to address at 11/12/24 PCP preop appt 11/12/24= (could not void at PAT appt 11/11/24; dropped off UA next day) UA: Negative Electrocardiogram Date: 05/06/24 NSR with sinus arrhythmia at 63bpm. Chest X-Ray Date: 05/06/24 FINDINGS: Cholecystectomy. Cardiomediastinal and hilar silhouettes are within normal limits. The patient is mildly rotated towards left. No pneumothorax, pleural effusion or airspace consolidation. Left shoulder arthroplasty. IMPRESSION: No acute process.
--- NOTE | 2024-12-08 17:55 | History & Physical Report ---
Date of Service December 08, 2024 Assessment & Plan (1) Osteoarthritis of left knee: Plan: End-stage left knee osteoarthritis with plan to proceed with left total knee replacement. Patient has history of right total knee replacement. Osteoarthritis type: primary Qualified Code(s): M17.12 - Unilateral primary osteoarthritis, left knee History of Present Illness Chief Complaint: Chronic left knee pain Primary Care Provider: Kalin Rodarte MD 70-year female with chronic progressive osteoarthritis left knee now severe with failed conservative management. Patient denies headaches, sweats, fevers, chills, double vision, blurred vision, cough, sore throat, dysphagia, chest pain, sob, wheezing, n/v/d/v, fatigue, urinary symptoms. ROS positive for irregular heartbeat, depression, hand numbness, osteoarthritis spine, acid reflux Allergies Allergy/AdvReac Type Severity Reaction Status Date / Time ibuprofen AdvReac Intermediate Gastrointestinal Verified 11/12/24 15:02 Upset metronidazole [From Flagyl] AdvReac Intermediate Gastrointestinal Verified 11/12/24 15:02 Upset propoxyphene [From Darvon] AdvReac Mild Fatigued Verified 11/12/24 15:02 Home Medications Medication Instructions Recorded Confirmed Type glucosamine 750 oe-whsxyfarsrr-kdb 1 tab PO BID #60 tabs 08/04/20 11/12/24 Rx no1 644 mg-C 30 mg-kera 1 mg tablet (Osteo Bi-Flex Triple Strength) fluticasone propionate 50 2 spray intranasal DAILY PRN 08/31/22 11/12/24 History mcg/actuation nasal Allergy Symptoms #16 grams spray,suspension ascorbate calcium (vitamin C) 500 500 mg PO DAILY 02/06/23 11/12/24 History mg tablet cholecalciferol (vitamin D3) 25 25 mcg PO DAILY 02/06/23 11/12/24 History mcg (1,000 unit) capsule loratadine 10 mg tablet (Allergy 10 mg PO DAILY #30 tabs 02/06/23 11/12/24 Rx Relief (loratadine)) jmufmqhb-zjij-phpy 8 mg-folic 400 1 tab PO DAILY 02/06/23 11/12/24 History mcg-K 50 mcg-lutein 300 mcg tablet (Centrum Silver Women) zinc 30 mg PO DAILY 02/06/23 11/12/24 History cinnamon 1,000 mg PO DAILY 02/26/23 11/12/24 History guaifenesin 400 mg tablet (Mucus 400 mg PO ONCE PRN congestion 02/26/23 11/12/24 History Relief) nervive 1 tab PO DAILY 02/26/23 11/12/24 History coenzyme Q10 400 mg capsule 800 mg PO DAILY 09/13/23 11/12/24 History clobetasol 0.05 % topical cream 1 applic topical DAILY #30 grams 11/04/23 11/12/24 Rx MELOX/KILLIAN/LIDOCAINE/PRILOCAINE See Rx Instructions topical QID 03/26/24 11/12/24 Rx (29AL) PRN pain #120 grams celecoxib 200 mg capsule 200 mg PO QAM 03/26/24 11/12/24 History insulin glargine 100 unit/mL (3 See Rx Instructions subcut QPM #15 03/26/24 11/12/24 Rx mL) subcutaneous pen mL vitamins A,C,F-pihp-wsyitq 4,296 1 cap PO BID 04/24/24 11/12/24 History mcg-226 mg-90 mg capsule (PreserVision AREDS) Bárbara Walker #1 ea 04/30/24 11/12/24 Rx metformin 500 mg tablet,extended 1,000 mg (2 x 500 mg) PO BID #360 05/10/24 11/12/24 Rx release 24 hr tabs metoprolol tartrate 50 mg tablet 50 mg PO BID #180 tabs 07/13/24 11/12/24 Rx blood sugar diagnostic (Prodigy No #100 ea 07/23/24 11/12/24 Rx Coding strips) lancets 28 gauge (Prodigy Twist #100 ea 07/23/24 11/12/24 Rx Top Lancet) amlodipine 2.5 mg tablet 2.5 mg PO QAM 11/03/24 11/12/24 History atorvastatin 40 mg tablet 40 mg PO QPM 11/03/24 11/12/24 History duloxetine 30 mg capsule,delayed 30 mg PO QAM 11/03/24 11/12/24 History release (Cymbalta) fexofenadine 180 mg tablet 180 mg PO DAILY 11/03/24 11/12/24 History gabapentin 300 mg capsule 300 mg PO TID 11/03/24 11/12/24 History (Neurontin) lansoprazole 30 mg capsule,delayed 30 mg PO QAM 11/03/24 11/12/24 History release (Prevacid) losartan 100 mg tablet 100 mg PO QAM 11/03/24 11/12/24 History methocarbamol 500 mg tablet 500 mg PO QID PRN muscle spasm 11/03/24 11/12/24 History glimepiride 4 mg tablet 4 mg PO BID #180 tabs 11/16/24 Rx hydrochlorothiazide 25 mg tablet 25 mg PO QAM #90 tabs 11/27/24 Rx pen needle, diabetic 33 gauge x #100 ea 11/27/24 Rx 3/16" (Comfort EZ Pen [place]) hydrocodone 5 mg-acetaminophen 325 1 - 2 tab PO QID PRN Pain #240 tabs 12/05/24 Rx mg tablet Past Med/Surg History Problem List (Updated 12/08/24 @ 17:59 by Neil Polanco MD) Hyperkalemia Seasonal allergies Chronic back pain Colon adenoma s/p excision Encounter for pre-operative examination Lichen sclerosus Hypertrophic scar Lumbar spinal stenosis (Acute) Medical History Type 2 diabetes mellitus Insulin/Oral - Kyle 3 HTN (hypertension) Scoliosis "severe" GERD (gastroesophageal reflux disease) well controlled and stable History of cancer of vulva (2022) no chemo/radiation - Was removed in [place] - Lichen Sclerosis - [facility] uses topical cream daily (clobetasol) Hyperlipidemia History of diverticulosis Found on colonoscopy - no hospitalizations no recent diverticulitis Postoperative anemia Hx of fall - due to knee and back pain/instability per patient -multiple times in the last 6 months most recently 09/30/24 as per patient - r/t left knee injection done earlier 2023 History of PSVT (paroxysmal supraventricular tachycardia) Stable - follows with Dr Ely - well controlled with metoprolol Urinary frequency Urinary retention Osteoarthritis Atopic dermatitis Vaginal prolapse s/p pessary Presence of pessary Depression History of gastric ulcer No recent issues Surgical History Status post reverse total shoulder replacement Left TSA, Arthroscopy with Distal Clavicle Excision, Subacromial Decompression (01/30/23): Grade 1 view, MAC#3, ETT 7.0 + regional at [facility] H/O colonoscopy H/O: hysterectomy Hx of tonsillectomy History of knee replacement Right Hx of cholecystectomy Family History Father Colorectal cancer Sister Cervical cancer Denies family history of Ovarian cancer Breast cancer Lung cancer Social History Smoking Status: Never smoker Second Hand Exposure: No; Do You Dip or Chew Tobacco: No; Tobacco Cessation Education Requested by Patient: No Hx Alcohol Use: No Hx Substance Use: No Preferred Language: Korean Communication Ability: Effective Etl Software Engineer Required: No Beliefs That Will Affect Care: None marital status: / Current Living Situation: Spouse current occupational status: retired How many Children do You have: 1 Other Information That Helps Us Care for You: No Feels Safe at Home: Yes Safety Concerns: Feels Safe At This Time Seatbelt Use: always Assistive Devices: Cane, Glasses, Walker and Other Assistive Devices Comment: Upper/Lower Partial Review of Systems All systems reviewed & are unremarkable except as noted in HPI & below Physical Exam Constitutional: WD/WN, vitals as above Respiratory: normal respiratory effort; no respiratory distress Cardiovascular: Rate/Rhythm: regular rate and regular rhythm Musculoskeletal: Left knee varus alignment moderate effusion medial joint line tenderness moderate patellofemoral crepitation active painful range of motion passive painful range of motion range of motion 15 degree flexion contracture with further flexion to 110 degrees. No pseudolaxity. Chronic venous stasis changes otherwise neurocirculatory exam intact. Skin: no rashes, warm and dry Neurologic: normal touch/pain/proprioception Psychiatric: A+Ox3, euthymic affect Results & Data Diagnostic Findings X-rays left knee 4 views weightbearing films severe osteoarthritis with varus knee bone loss medial compartment subchondral sclerosis osteophytes and chondrocalcinosis with advanced patellofemoral osteoarthritis loose body in the superior patellar pouch. Previous right knee replacement some medial overhang of the tibial component.
--- NOTE | 2024-12-08 18:19 | History & Physical Report ---
Date of Service December 08, 2024 Assessment & Plan (1) Rotator cuff tear arthropathy of right shoulder: Plan: Right shoulder advanced rotator cuff arthropathy with failed rotator cuff repair chronic pain and weakness with dysfunction right shoulder. Best plan is to pr oceed with reverse total shoulder arthroplasty removal of prior hardware and suture material. (2) Failure of previous rotator cuff repair: History of Present Illness Chief Complaint: Chronic right shoulder pain weakness Primary Care Provider: Kalin Rodarte MD 78-year-old female with chronic right shoulder pain rotator cuff tear arthropathy failed rotator cuff repair failed conservative management including adverse reaction to Celestone injection and failure to improve with physical therapy. Patient's had 4 surgeries on her shoulder already. Patient denies headaches, sweats, fevers, chills, double vision, blurred vision, cough, sore throat, dysphagia, chest pain, n/v/d/v, fatigue, urinary symptoms. ROS positive for irregular heartbeat, depression, hand numbness, osteoarthritis spine, acid reflux, COPD, sleep apnea, shortness of breath with activity or lying flat. Allergies Allergy/AdvReac Type Severity Reaction Status Date / Time ibuprofen AdvReac Intermediate Gastrointestinal Verified 11/12/24 15:02 Upset metronidazole [From Flagyl] AdvReac Intermediate Gastrointestinal Verified 11/12/24 15:02 Upset propoxyphene [From Darvon] AdvReac Mild Fatigued Verified 11/12/24 15:02 Home Medications Medication Instructions Recorded Confirmed Type glucosamine 750 fh-flfnljdufpu-bqu 1 tab PO BID #60 tabs 08/04/20 11/12/24 Rx no1 644 mg-C 30 mg-kera 1 mg tablet (Osteo Bi-Flex Triple Strength) fluticasone propionate 50 2 spray intranasal DAILY PRN 08/31/22 11/12/24 History mcg/actuation nasal Allergy Symptoms #16 grams spray,suspension ascorbate calcium (vitamin C) 500 500 mg PO DAILY 02/06/23 11/12/24 History mg tablet cholecalciferol (vitamin D3) 25 25 mcg PO DAILY 02/06/23 11/12/24 History mcg (1,000 unit) capsule loratadine 10 mg tablet (Allergy 10 mg PO DAILY #30 tabs 02/06/23 11/12/24 Rx Relief (loratadine)) myourmtu-oljb-rqgy 8 mg-folic 400 1 tab PO DAILY 02/06/23 11/12/24 History mcg-K 50 mcg-lutein 300 mcg tablet (Centrum Silver Women) zinc 30 mg PO DAILY 02/06/23 11/12/24 History cinnamon 1,000 mg PO DAILY 02/26/23 11/12/24 History guaifenesin 400 mg tablet (Mucus 400 mg PO ONCE PRN congestion 02/26/23 11/12/24 History Relief) nervive 1 tab PO DAILY 02/26/23 11/12/24 History coenzyme Q10 400 mg capsule 800 mg PO DAILY 09/13/23 11/12/24 History clobetasol 0.05 % topical cream 1 applic topical DAILY #30 grams 11/04/23 11/12/24 Rx MELOX/KILLIAN/LIDOCAINE/PRILOCAINE See Rx Instructions topical QID 03/26/24 11/12/24 Rx (29AL) PRN pain #120 grams celecoxib 200 mg capsule 200 mg PO QAM 03/26/24 11/12/24 History insulin glargine 100 unit/mL (3 See Rx Instructions subcut QPM #15 03/26/24 11/12/24 Rx mL) subcutaneous pen mL vitamins A,C,Z-nvwk-wckwoa 4,296 1 cap PO BID 04/24/24 11/12/24 History mcg-226 mg-90 mg capsule (PreserVision AREDS) Bárbara Walker #1 ea 04/30/24 11/12/24 Rx metformin 500 mg tablet,extended 1,000 mg (2 x 500 mg) PO BID #360 05/10/24 11/12/24 Rx release 24 hr tabs metoprolol tartrate 50 mg tablet 50 mg PO BID #180 tabs 07/13/24 11/12/24 Rx blood sugar diagnostic (Prodigy No #100 ea 07/23/24 11/12/24 Rx Coding strips) lancets 28 gauge (Prodigy Twist #100 ea 07/23/24 11/12/24 Rx Top Lancet) amlodipine 2.5 mg tablet 2.5 mg PO QAM 11/03/24 11/12/24 History atorvastatin 40 mg tablet 40 mg PO QPM 11/03/24 11/12/24 History duloxetine 30 mg capsule,delayed 30 mg PO QAM 11/03/24 11/12/24 History release (Cymbalta) fexofenadine 180 mg tablet 180 mg PO DAILY 11/03/24 11/12/24 History gabapentin 300 mg capsule 300 mg PO TID 11/03/24 11/12/24 History (Neurontin) lansoprazole 30 mg capsule,delayed 30 mg PO QAM 11/03/24 11/12/24 History release (Prevacid) losartan 100 mg tablet 100 mg PO QAM 11/03/24 11/12/24 History methocarbamol 500 mg tablet 500 mg PO QID PRN muscle spasm 11/03/24 11/12/24 History glimepiride 4 mg tablet 4 mg PO BID #180 tabs 11/16/24 Rx hydrochlorothiazide 25 mg tablet 25 mg PO QAM #90 tabs 11/27/24 Rx pen needle, diabetic 33 gauge x #100 ea 11/27/24 Rx 3/16" (Comfort EZ Pen Abie) hydrocodone 5 mg-acetaminophen 325 1 - 2 tab PO QID PRN Pain #240 tabs 12/05/24 Rx mg tablet Past Med/Surg History Problem List (Updated 12/08/24 @ 18:24 by Neil Polanco MD) Failure of previous rotator cuff repair Rotator cuff tear arthropathy of right shoulder Hyperkalemia Seasonal allergies Chronic back pain Colon adenoma s/p excision Encounter for pre-operative examination Lichen sclerosus Hypertrophic scar Lumbar spinal stenosis (Acute) Medical History Type 2 diabetes mellitus Insulin/Oral - Kyle 3 HTN (hypertension) Scoliosis "severe" GERD (gastroesophageal reflux disease) well controlled and stable History of cancer of vulva (2022) no chemo/radiation - Was removed in [place] - Lichen Sclerosis - [facility] uses topical cream daily (clobetasol) Hyperlipidemia History of diverticulosis Found on colonoscopy - no hospitalizations no recent diverticulitis Postoperative anemia Hx of fall - due to knee and back pain/instability per patient -multiple times in the last 6 months most recently 09/30/24 as per patient - r/t left knee injection done earlier 2023 History of PSVT (paroxysmal supraventricular tachycardia) Stable - follows with Dr Ely - well controlled with metoprolol Urinary frequency Urinary retention Osteoarthritis Atopic dermatitis Vaginal prolapse s/p pessary Presence of pessary Depression History of gastric ulcer No recent issues Surgical History Status post reverse total shoulder replacement Left TSA, Arthroscopy with Distal Clavicle Excision, Subacromial Decompression (01/30/23): Grade 1 view, MAC#3, ETT 7.0 + regional at [facility] H/O colonoscopy H/O: hysterectomy Hx of tonsillectomy History of knee replacement Right Hx of cholecystectomy Family History Father Colorectal cancer Sister Cervical cancer Denies family history of Ovarian cancer Breast cancer Lung cancer Social History Smoking Status: Never smoker Second Hand Exposure: No; Do You Dip or Chew Tobacco: No; Tobacco Cessation Education Requested by Patient: No Hx Alcohol Use: No Hx Substance Use: No Preferred Language: Sinhala Communication Ability: Effective Outer Diameter Grinder Required: No Beliefs That Will Affect Care: None marital status: / Current Living Situation: Spouse current occupational status: retired How many Children do You have: 1 Other Information That Helps Us Care for You: No Feels Safe at Home: Yes Safety Concerns: Feels Safe At This Time Seatbelt Use: always Assistive Devices: Cane, Glasses, Walker and Other Assistive Devices Comment: Upper/Lower Partial Review of Systems All systems reviewed & are unremarkable except as noted in HPI & below Physical Exam Constitutional: WD/WN, vitals as above Respiratory: normal respiratory effort; no respiratory distress Cardiovascular: Rate/Rhythm: regular rate and regular rhythm Musculoskeletal: Right shoulder has anterior saber and arthroscopic scars with abnormal rhythm with anterior lateral shoulder tenderness positive Ball and Neer impingement signs active painful range of motion passive painful range of motion active flexion 80 degrees passive flexion 170 degrees active abduction 80 degrees passive abduction 90 degrees strength 4+/5 external rotation strength 4-/5 abduction strength 5+/5 internal rotation strength and distal neurocirculatory exam intact. Skin: no rashes, warm and dry Neurologic: normal touch/pain/proprioception Psychiatric: A+Ox3, euthymic affect Results & Data Diagnostic Findings Right shoulder x-rays demonstrate [place] stage IV rotator cuff arthropathy failed rotator cuff repair
[2024-12-09] MEDS: LR 500ML BOLUS, THEN 15ML/HR IV SCH (05:55)
[2024-12-09] MEDS: ACETAMINOPHEN 500 MG TAB PO SCH ×2 (06:20→14:34)
[2024-12-09] MEDS: GABAPENTIN 300 MG CAP PO SCH ×2 (06:21→16:01)
[2024-12-09] MEDS: METOCLOPRAMIDE HCL 10 MG TABLET PO SCH (06:21)
[2024-12-09] MEDS: LR 60ML/HR IV SCH (06:21)
[2024-12-09] MEDS: FAMOTIDINE 20 MG TAB PO SCH (06:21)
[2024-12-09] MEDS ORDERED: DEXAMETHASONE SOD INJ 4 MG/ML VIAL ONE (06:22)
[2024-12-09] MEDS ORDERED: LIDOCAINE 2% 2 ML VIAL/AMP(20MG/ML) INFIL ONE (06:22)
[2024-12-09] MEDS ORDERED: PROPOFOL IV EMULSION 10 MG/ML 20 ML VIAL IV ONE (06:22)
[2024-12-09] MEDS ORDERED: ONDANSETRON INJ 2 MG/ML 2 ML VIAL ONE (06:22)
[2024-12-09] MEDS ORDERED: ROPIVACAINE 0.5% 5 MG/ML 30 ML VIAL ONE (06:23)
[2024-12-09] MEDS ORDERED: MIDAZOLAM HCL 1 MG/ML 2ML VIAL ONE (06:23)
[2024-12-09] MEDS ORDERED: BUPIVACAINE 0.5 % 5 MG/1 ML PF 10ML VIAL ONE (06:23)
[2024-12-09] MEDS ORDERED: fentaNYL citrate PF 100 MCG/2 ML VIAL ONE ×2 (06:23→07:43)
[2024-12-09] MEDS ORDERED: EPINEPHrine INJ 1 MG/ML AMP ONE (06:23)
[2024-12-09] MEDS ORDERED: GLYCOPYRROLATE 0.2 MG/ML VIAL ONE (06:26)
--- NOTE | 2024-12-09 07:09 | History & Physical Bridge Note ---
Date of Service December 09, 2024 History & Physical Bridge Note I have examined the patient, reviewed the History & Physical and in the interval since the performance of the History & Physical I have noted the following changes of clinical significance: no changes noted
[2024-12-09] MEDS: TRANEXAMIC ACID 1,000 MG **IV Pre-op IV SCH (07:10)
[2024-12-09] MEDS: ceFAZolin 2000MG 2,000 MG/15 ML SYR IV SCH ×2 (07:27→17:39)
[2024-12-09] MEDS ORDERED: PHENYLEPHRINE HCL 10 MG/ML VIAL ONE (07:47)
[2024-12-09] MEDS: ORTHO JOINT ANESTHETIC ONE (08:08)
[2024-12-09] MEDS ORDERED: HYDROmorphone INJ 2 MG/ML SYR/VIAL ONE (08:20)
[2024-12-09] MEDS ORDERED: HYDROmorphone INJ 1 MG/ML SYRINGE IV PRN (08:33)
[2024-12-09] MEDS ORDERED: FLUMAZENIL 0.1 MG/1 ML 10 ML VIAL IV PRN (08:33)
[2024-12-09] MEDS ORDERED: ONDANSETRON INJ 2 MG/ML 2 ML VIAL IV PRN ×2 (08:33→12:04)
[2024-12-09] MEDS ORDERED: ATROPINE SULFATE 0.1 MG/ML 10ML SYR IV PRN (08:33)
[2024-12-09] MEDS ORDERED: ePHEDrine sulfate 50 MG/ML AMP IV PRN (08:33)
[2024-12-09] MEDS ORDERED: NALOXONE HCL 0.4 MG/1 ML VIAL/CARP IV PRN ×2 (08:33→12:04)
[2024-12-09] MEDS ORDERED: PROMETHAZINE HCL 6.25 MG in SODIUM CHLORIDE 0.9% 50 ML IV PRN (08:33)
[2024-12-09] MEDS ORDERED: fentaNYL citrate PF 100 MCG/2 ML VIAL IV PRN (08:33)
[2024-12-09] MEDS: ROPIVACAINE 0.5% HCL/PF 246 MG, Ketorolac (*for OR use only*) 30 MG in SODIUM CHLORIDE ... INFIL SCH (09:00)
[2024-12-09] MEDS: TRANEXAMIC ACID 1,000 MG **IV Intra-op IV SCH (09:18)
--- NOTE | 2024-12-09 10:10 | Operative Report ---
Post Operative Report Pre & Post Diagnosis Operation Date: 12/09/24 07:00 Pre-Op Diagnosis: Left Knee Osteoarthritis, Chondrocalcinosis, loose bodies, synovitis knee. Post-Op Diagnosis: Left Knee Osteoarthritis, chondrocalcinosis, loose bodies, synovitis knee. I identified the patient and participated in the time-out.: Yes Procedure Operation Date: 12/09/24 07:00 Actual Procedures p Left Total Knee Arthroplasty, Cemented(Left), removal loose bodies, excision calcium deposits and partial synovectomy. Application derrek and Acticoat superficial wound VAC.- Neil Polanco MD Surgeon Neil Polanco MD Compliance Specialist Rafa DEVLIN Estimated Blood Loss 5 Findings Consistent with Post-Op Diagnosis Specimens Bone cuts Drains 2 Hemovac Anesthesia Type General Regional Complications none Disposition Disposition: Recovery Room Indications 78 female with severe left knee osteoarthritis failed conservative management. Radiographs demonstrated varus knee bone loss medial compartment tricompartmental osteoarthritis chondrocalcinosis large loose bodies and large osteophytes. Right knee replacement. Description of Procedure Patient was taken to the operating room placed supine on the operating table and anesthetized under general and regional block anesthesia. Patient attempted spinal but due to her severe scoliosis that was unsuccessful. Exam under anesthesia demonstrated 20 degree flexion contracture with further flexion to 95 degrees. Large effusion no pseudolaxity. A pneumatic tourniquet was placed about the thigh of the left lower extremity. The left lower extremity was prepped and draped in usual sterile fashion. The leg was elevated exsanguinated with an Esmarch bandage and the pneumatic tourniquet was raised to 300 mm mercury. An anterior incision was made across the[] knee. The skin was incised longitudinally subcutaneous flaps were elevated and an incision was made through the medial retinaculum extending up into the mid third of the quadriceps tendon and extended down to the medial tibial tubercle. Patient had a very large inferior pole patella osteophyte. Intra-articular findings demonstrated a 2 mm x 3.5 mm large oval loose body in the superior lateral gutter and multiple loose bodies in the synovium with some thickened synovium in various areas of the knee with debris within the synovium. Patient diffuse chondrocalcinosis degenerative meniscus tears chronic ACL tear degenerative PCL. Cbkl-jv-[id number] medial compartment bone loss medial compartment tricompartmental osteophytes massive osteophytes around the patella.. The knee was exposed by excising the infrapatellar fat pad, excising the meniscal remnants and anterior cruciate ligament remnants and the posterior cruciate ligament. Any inflamed synovial tissue was resected. The loose bodies were removed. The areas of synovium that had embedded debris were resected. The lateral synovial bands were released the fat pad over the anterior femur was resected for placement of the component in that area. I had to perform the patella cut first due to inability get exposure of the femur. Large osteophytes removed with a rongeur. A subperiosteal peel release was performed around the lateral patella. The patella width was measured and width was reproduced significant cut technique a 29 mm symmetrical patella component. 3 drill holes were made in any excess bone spurs and lateral facet were excised to prevent any impingement. The femur was then exposed. The custom femoral cutting block was pinned in position. I started with additional +2 cut on the femur to help correct the flexion contracture. The distal femoral cutting block was applied. The distal femoral cut was made with the oscillating saw. The size 8 4-in-1 cutting block was placed. The anterior and posterior chamfer cuts were made. The tibia was exposed. A custom tibial cutting block was positioned and drill holes were made for the cutting guide. Cutting guide was placed and the proximal cut was made with the oscillating saw. All osteophytes were resected. The lamina center maker hand was used to assess ligamentous balance and the ligaments were balanced in extension and flexion. Medial and posterior medial releases were required. The tibia was reexposed and measured for a size D tibial component. This was externally rotated in line with the tibial tubercle and the fixation pins were drilled. The proximal tibia was fashioned with the drill and punch. The size 8 CR femoral trial was inserted. The trial MC inserts were used. When the MC insert trials were placed patient still had a flexion contracture despite the smallest trial and appeared to be more looseness in flexion and extension so I chose to resect 2 more millimeters off the femur. This required putting the pins back into the femur resecting +2 cut off the distal femur then revised and the chamfer cuts replaced and the trial and retrialing the tibial trials. The 10 mm insert gave balanced ligaments through full range of motion. The patella tracked with some lateral tilt so I had to do a lateral release so I did a electrocautery lateral release maintaining the synovial tissue intact. Patella tracking was reassessed and now the patella tracked centrally. The trials were removed. The orthomix anesthetic cocktail was injected per protocol. The knee was then copiously irrigated with pulsatile lavage saline solution. The final components were cemented with Refobacin bone cement. The final components were Yecenia persona size 8 left narrow CR femoral component, D left tibial component, left 10 mm MC tibial polyethylene and a 29 mm symmetrical polyethylene patella. Xperience was used on the middle of the tibia under the tibial polyethylene during insertion. After the cement cured with the knee in full extension the Xperience is used to irrigate out the knee joint with pulsatile lavage. 2 drains were brought out laterally and connected to a Hemovac. The quadriceps tendon and medial retinaculum were closed with #2 FiberWire sutures and distal quad tendon medial retinacular area and 1 suture at the level of the tibial polyethylene and 1 suture at the apex of the quadriceps split. A 0 strata fix running locking suture was placed from the superior split the quad tendon down to the inferior pole of the patella and then below that level medial retinaculum was repaired with interrupted [id number]-[id number] #0 Vicryl sutures. The knee was taken through a full range of motion which was 0 through 130 degrees and the repair was secure. The subcutaneous tissues were closed with 2-0 Vicryl sutures and skin was closed with surgical stan.A derrek and Acticoat superficial wound VAC was applied and the patient tolerated the procedure well. Rafa DEVLIN my physician legal administrative assistant participated as first officer and was an integral part in all aspects of the procedure, he assisted in soft tissue retraction, instrument management ,leg positioning, the closure, superficial wound VAC application and will participate in the postoperative care of the patient. I attest to the content of the Intraoperative Record and any orders documented therein. Any exceptions are noted below.
--- NOTE | 2024-12-09 10:36 | Anesthesiology Progress Note ---
Date of Service December 09, 2024 Anesthesia Post Procedure Vital Signs Vital Signs: Temp Pulse Pulse Resp BP Pulse Ox O2 Del Method 12/09/24 10:20 36.7 C 84 21 128/64 96 Room Air 12/09/24 10:10 88 15 123/76 99 Oxymask 12/09/24 10:00 92 H 19 115/84 96 Oxymask 12/09/24 09:54 36 C L 88 13 162/85 H 99 Oxymask 12/09/24 06:05 36.9 C 69 18 160/80 H 99 Room Air O2 Flow Rate 12/09/24 10:20 12/09/24 10:10 2 12/09/24 10:00 7 12/09/24 09:54 7 12/09/24 06:05 Pain Intensity Left Knee: Pain Intensity: 4 Transfer of Care Handoff Completed per policy Notes Mental Status: alert / awake / arousable Patient Amnestic to Procedure: Yes Nausea / Vomiting: adequately controlled Pain: adequately controlled Airway Patency, RR, SpO2: stable & adequate BP & HR: stable & adequate Hydration State: stable & adequate Anesthetic Complications: no major complications apparent
--- NOTE | 2024-12-09 11:19 | XRay Report ---
XR knee LT 1 or 2V routine HISTORY: 78 years-old Female Surgical Post Op left knee arthroplasty COMPARISON: None TECHNIQUE: 2 views of left knee FINDINGS: Total joint arthroplasty with patellar resurfacing. Anterior midline skin stan with expected posto perative soft tissue swelling and deep tissue air with surgical drainage catheter. No acute fracture or unexpected opaque foreign body. IMPRESSION: Total joint arthroplasty with expected postoperative changes. ACT 112: Negative or not required by law. The above report was generated using voice recognition software. It may contain grammatical, syntax o r spelling errors. Electronically signed by: Krzysztof Medina M.D. 12/09/2024 11:18 AM
[2024-12-09] MEDS ORDERED: ALUMINUM/MAGNESIUM SUSP 30 ML UDC PO PRN (12:04)
[2024-12-09] MEDS ORDERED: METOCLOPRAMIDE HCL INJ 5 MG/ML 2 ML VIAL IV PRN (12:04)
[2024-12-09] MEDS ORDERED: diphenhydrAMINE Capsule 25 MG CAP PO PRN (12:04)
[2024-12-09] MEDS ORDERED: HYDROmorphone INJ 0.5 MG/0.5 ML SYR IV PRN (12:04)
[2024-12-09] MEDS ORDERED: bisacodyL 10 MG SUPP PR PRN (12:04)
[2024-12-09] MEDS ORDERED: FLUTICASONE PROPIONATE NA SPR 16 GM BTL NAE PRN (12:04)
[2024-12-09] MEDS ORDERED: PHARMACY GLYCEMIC MGMT CONSULT PRN (12:04)
[2024-12-09] MEDS ORDERED: guaiFENesin 200 MG TAB PO PRN (12:39)
--- NOTE | 2024-12-09 13:14 | Pharmacy Report ---
Pharmacy Glycemic Short Note 2 - Date of Service December 09, 2024 - Glycemic Short BSG Results (Last 24 hours): 12/09/24 12/09/24 05:46 10:05 POC Glucose 119 H 153 H OUTPATIENT ANTIDIABETIC REGIMEN: * Metformin 1,000 mg PO BID * Glimepiride 4 mg PO BID w meals * Insulin glargine 32-50 units (according to the med rec: pt states that he has been taking 24 units since he has had lower sugars in the morning) * A1c 7.5% 11/11/24 ASSESSMENT: * COBY is a 78YO F with T2DM requiring insulin here postop LTKA. Pharmacy consulted to manage her T2DM. * BSGs within range this AM, once transferred to crept up to 191. * PMH includes HTN, HLD, GERD, PSVT, gastric ulcer, diverticulosis. * Patient received 8mg IV dexamethasone intra-op, no postop doses ordered. Postop ancef 2g q8h ordered. T1DM diet ordered. PLAN FOR INPATIENT GLYCEMIC CONTROL: * Hold outpatient oral diabetes medications * Basal insulin * Lantus 20 units SQ * Bolus insulin * NovoLog per scale ACHS or Q6hrs while NPO * Goal Range: Low 110 mg/dL - High 140 mg/dL * Correction Factor: 25 mg/dL/unit * Nutritional / Prandial insulin per carb ratio of 1 unit per 8 grams CHO consumed
[2024-12-09] MEDS ORDERED: GLUCOSE 40% GEL 15 GM TUBE PO PRN (13:45)
[2024-12-09] MEDS ORDERED: GLUCOSE 10 TAB/TUBE PO PRN (13:45)
[2024-12-09] MEDS ORDERED: CARBOHYDRATES FOR HYPOGLYCEMIA PO PRN (13:45)
[2024-12-09] MEDS ORDERED: GLUCAGON FOR INJ 1 MG VIAL SQ PRN (13:45)
[2024-12-09] MEDS ORDERED: DEXTROSE 50% 50 ML SYRINGE IV PRN (13:45)
[2024-12-09] MEDS: INSULIN ASPART PER UNIT CHARGE SC SCH (14:33)
[2024-12-09] MEDS: LANTUS PER UNIT CHARGE SC ONE (14:33)
[2024-12-09] MEDS: TRANEXAMIC ACID / 0.7% NACL 1,000 MG/100 ML BAG IV SCH (17:39)
--- NOTE | 2024-12-09 19:13 | Hospitalist Consultation ---
Date of Consultation December 09, 2024 Assessment & Plan (1) Rotator cuff tear arthropathy of right shoulder: as per primary service DVT per primary service (2) HTN (hypertension): Blood pressure appears stable. Continue home medications (3) Type 2 diabetes mellitus: consulted glycemic control reviewed BMP and CBC (4) Scoliosis: History of Present Illness Reason for Consultation: medical management Attending Physician: Neil Polanco MD History of Present Illness 78 yo female is admitted for rotator cuff repair. Patient has past medical history of hypertension and diabetes mellitus type 2. Primary service consulted medicine for management of chronic problems. Allergies Allergy/AdvReac Type Severity Reaction Status Date / Time ibuprofen AdvReac Intermediate Gastrointestinal Verified 12/09/24 05:53 Upset metronidazole [From Flagyl] AdvReac Intermediate Gastrointestinal Verified 12/09/24 05:53 Upset propoxyphene [From Darvon] AdvReac Mild Fatigued Verified 12/09/24 05:53 Home Medications Medication Instructions Recorded Confirmed Type glucosamine 750 ra-sfxokawpwbr-pvl 1 tab PO BID #60 tabs 08/04/20 12/09/24 Rx no1 644 mg-C 30 mg-kera 1 mg tablet (Osteo Bi-Flex Triple Strength) fluticasone propionate 50 2 spray intranasal DAILY PRN 08/31/22 12/09/24 History mcg/actuation nasal Allergy Symptoms #16 grams spray,suspension ascorbate calcium (vitamin C) 500 500 mg PO DAILY 02/06/23 12/09/24 History mg tablet cholecalciferol (vitamin D3) 25 25 mcg PO DAILY 02/06/23 12/09/24 History mcg (1,000 unit) capsule loratadine 10 mg tablet (Allergy 10 mg PO DAILY #30 tabs 02/06/23 12/09/24 Rx Relief (loratadine)) lhvspgli-bzgi-plyi 8 mg-folic 400 1 tab PO DAILY 02/06/23 12/09/24 History mcg-K 50 mcg-lutein 300 mcg tablet (Centrum Silver Women) zinc 30 mg PO DAILY 02/06/23 12/09/24 History guaifenesin 400 mg tablet (Mucus 400 mg PO ONCE PRN congestion 02/26/23 12/09/24 History Relief) nervive 1 tab PO DAILY 02/26/23 12/09/24 History coenzyme Q10 400 mg capsule 800 mg PO DAILY 09/13/23 12/09/24 History clobetasol 0.05 % topical cream 1 applic topical DAILY #30 grams 11/04/23 12/09/24 Rx MELOX/KILLIAN/LIDOCAINE/PRILOCAINE See Rx Instructions topical QID 03/26/24 12/09/24 Rx (29AL) PRN pain #120 grams celecoxib 200 mg capsule 200 mg PO QAM 03/26/24 12/09/24 History insulin glargine 100 unit/mL (3 See Rx Instructions subcut QPM #15 03/26/24 12/09/24 Rx mL) subcutaneous pen mL vitamins A,C,L-tppa-xsypvb 4,296 1 cap PO BID 04/24/24 12/09/24 History mcg-226 mg-90 mg capsule (PreserVision AREDS) Marscarmen Walker #1 ea 04/30/24 11/12/24 Rx metformin 500 mg tablet,extended 1,000 mg (2 x 500 mg) PO BID #360 05/10/2407/26 Rx release 24 hr tabs metoprolol tartrate 50 mg tablet 50 mg PO BID #180 tabs 07/13/24 12/09/24 Rx blood sugar diagnostic (Prodigy No #100 ea 07/23/24 11/12/24 Rx Coding strips) lancets 28 gauge (Prodigy Twist #100 ea 07/23/24 11/12/24 Rx Top Lancet) amlodipine 2.5 mg tablet 2.5 mg PO QAM 11/03/24 12/09/24 History atorvastatin 40 mg tablet (Lipitor) 40 mg PO QPM 11/03/24 12/09/24 History duloxetine 30 mg capsule,delayed 30 mg PO QAM 11/03/24 12/09/24 History release (Cymbalta) fexofenadine 180 mg tablet 180 mg PO DAILY 11/03/24 12/09/24 History (Lilliana Allergy) gabapentin 300 mg capsule 300 mg PO TID 11/03/24 12/09/24 History (Neurontin) lansoprazole 30 mg capsule,delayed 30 mg PO QAM 11/03/24 12/09/24 History release (Prevacid) losartan 100 mg tablet 100 mg PO QAM 11/03/24 12/09/24 History methocarbamol 500 mg tablet 500 mg PO QID PRN muscle spasm 11/03/24 12/09/24 History glimepiride 4 mg tablet 4 mg PO BID #180 tabs 11/16/24 12/09/24 Rx hydrochlorothiazide 25 mg tablet 25 mg PO QAM #90 tabs 11/27/24 12/09/24 Rx pen needle, diabetic 33 gauge x #100 ea 11/27/24 Rx 3/16" (Comfort EZ Pen [place]) hydrocodone 5 mg-acetaminophen 325 1 - 2 tab PO QID PRN Pain #240 tabs 12/05/24 12/09/24 Rx mg tablet acetaminophen 500 mg tablet 1,000 mg (2 x 500 mg) PO Q8H fever 12/09/24 Rx (Tylenol Extra Strength) or pain #90 tabs aspirin 81 mg tablet,delayed 81 mg PO BID #60 tabs 12/09/24 Rx release cefadroxil 500 mg capsule 500 mg PO Q12H #28 caps 12/09/24 Rx celecoxib 200 mg capsule (Celebrex) 200 mg PO BID #60 caps 12/09/24 Rx oxycodone 5 mg tablet 5 mg PO Q4H PRN pain #20 tabs 12/09/24 Rx Patient History Medical History Type 2 diabetes mellitus Insulin/Oral - Kyle 3 HTN (hypertension) Scoliosis "severe" GERD (gastroesophageal reflux disease) well controlled and stable History of cancer of vulva (2022) no chemo/radiation - Was removed in [place] - Lichen Sclerosis - [facility] uses topical cream daily (clobetasol) Hyperlipidemia History of diverticulosis Found on colonoscopy - no hospitalizations no recent diverticulitis Postoperative anemia Hx of fall - due to knee and back pain/instability per patient -multiple times in the last 6 months most recently 09/30/24 as per patient - r/t left knee injection done earlier 2023 History of PSVT (paroxysmal supraventricular tachycardia) Stable - follows with Dr Ely - well controlled with metoprolol Urinary frequency Urinary retention Osteoarthritis Atopic dermatitis Vaginal prolapse s/p pessary Presence of pessary Depression History of gastric ulcer No recent issues Surgical History Status post reverse total shoulder replacement Left TSA, Arthroscopy with Distal Clavicle Excision, Subacromial Decompressio n (01/30/23): Grade 1 view, MAC#3, ETT 7.0 + regional at [facility] H/O colonoscopy H/O: hysterectomy Hx of tonsillectomy History of knee replacement Right Hx of cholecystectomy Family History Father Colorectal cancer Sister Cervical cancer Denies family history of Ovarian cancer Breast cancer Lung cancer Social History Smoking Status: Never smoker Second Hand Exposure: No; Do You Dip or Chew Tobacco: No; Tobacco Cessation Education Requested by Patient: No Hx Alcohol Use: No Hx Substance Use: No Preferred Language: Croatian Communication Ability: Effective Adjunct English Instructor Required: No Beliefs That Will Affect Care: None marital status: / Current Living Situation: Spouse current occupational status: retired How many Children do You have: 1 Other Information That Helps Us Care for You: No Feels Safe at Home: Yes Safety Concerns: Feels Safe At This Time Seatbelt Use: always Assistive Devices: None Assistive Devices Comment: Upper/Lower Partial Review of Systems Constitutional: no fever and no body aches Eyes: no blind spots Ear, Nose, Mouth, Throat: no ear pain Respiratory: no cough Cardiovascular: no chest pain Gastrointestinal: no abdominal pain Genitourinary: no dysuria Musculoskeletal: no neck pain Integumentary: no acne and no lesions Neurologic: no unsteadiness Psychiatric: no behavioral changes Endocrine: no fatigue Hematologic / Lymphatic: no easy bleeding Allergy / Immunological: no GI upset with certain foods Physical Exam Constitutional: WD/WN, vitals as above Eyes: PERRL, conjunctivae normal, anicteric sclerae ENMT: external ear and nose normal, oropharynx normal Neck: trachea midline, no thyromegaly Respiratory: normal respiratory effort, lungs clear to auscultation Cardiovascular: RRR, no murmur, no edema Gastrointestinal (Abdomen): normal bowel sounds, soft, nontender, no hepatosplenomegaly Musculoskeletal: Head/Neck/Chest: + head abnormal to inspection Skin: no rashes, warm and dry Neurologic: moves all extremities Psychiatric: A+Ox3, euthymic affect Lymphatic: no cervical or axillary lymphadenopathy Results & Data Results & Data Vital Signs (Past 12 Hours) Vital Signs Temp Pulse Pulse Resp BP Pulse Ox O2 Del Method 12/09/24 16:03 36.7 C 79 16 113/59 L 96 Room Air 12/09/24 15:10 37.2 C 76 16 130/74 95 Room Air 12/09/24 14:13 37.1 C 72 16 119/65 96 Room Air 12/09/24 13:45 36.9 C 79 16 131/71 96 Room Air 12/09/24 13:09 36.9 C 81 16 141/70 H 96 Room Air 12/09/24 12:45 36.8 C 72 12 125/72 94 Room Air 12/09/24 12:15 74 15 128/70 95 Room Air 12/09/24 11:45 73 11 L 132/62 94 Room Air 12/09/24 11:30 73 12 124/68 94 Room Air 12/09/24 11:15 71 17 124/69 98 Room Air 12/09/24 11:00 71 15 116/74 96 Room Air 12/09/24 10:45 70 13 129/76 94 Room Air 12/09/24 10:30 71 15 124/96 96 Room Air 12/09/24 10:20 36.7 C 84 21 128/64 96 Room Air 12/09/24 10:10 88 15 123/76 99 Oxymask 12/09/24 10:00 92 H 19 115/84 96 Oxymask 12/09/24 09:54 36 C L 88 13 162/85 H 99 Oxymask O2 Flow Rate 12/09/24 16:03 12/09/24 15:10 12/09/24 14:13 12/09/24 13:45 12/09/24 13:09 12/09/24 12:45 12/09/24 12:15 12/09/24 11:45 12/09/24 11:30 12/09/24 11:15 12/09/24 11:00 12/09/24 10:45 12/09/24 10:30 12/09/24 10:20 12/09/24 10:10 2 12/09/24 10:00 7 12/09/24 09:54 7 PG Care Time/CCT Total # of Minutes Spent Total Time Spent with Patient: Total time spent is greater than 50% in coordination of care (as documented) at patient's floor/unit and/or counseling patient: Coding Level of Care Code 34056 IN/OBS CONSULT LVL 3,45M Diagnoses Rotator cuff tear arthropathy of right shoulder M75.101; M12.811 HTN (hypertension) I10 Type 2 diabetes mellitus E11.9 Scoliosis M41.9
[2024-12-09] MEDS ORDERED: NON-FORMULARY MEDICATION (Glucosam-Chon-Msm1-C-Mang-Bosw [Osteo Bi-Flex Triple Strength] 7 PO SCH (21:00)
[2024-12-09] MEDS ORDERED: metFORMIN HCL ER 500 MG TABCR PO SCH (21:00)
[2024-12-09] MEDS ORDERED: GLIMEPIRIDE 2 MG TAB PO SCH (21:00)
[2024-12-09] MEDS ORDERED: NON-FORMULARY MEDICATION (Insulin Glargine 100 unit/mL (3 mL) insulin pen) SQ SCH (21:00)
[2024-12-09] MEDS ORDERED: NON-FORMULARY MEDICATION (Vitamins A,C,E-Zinc-Copper [Preservision Areds] 4,296 mcg-226 mg PO SCH (21:00)
[2024-12-09] MEDS: SENNA 8.6 MG TAB PO SCH (21:07)
[2024-12-09] MEDS: ATORVASTATIN 40 MG TAB PO SCH (21:07)
[2024-12-09] MEDS: DOCUSATE SODIUM 100 MG CAP PO SCH (21:07)
[2024-12-09] MEDS: METOPROLOL TARTRATE 50 MG TAB PO SCH (21:07)
[2024-12-09] MEDS: CeleBREX 200 MG CAP PO SCH (21:07)
[2024-12-09] MEDS: ASPIRIN 81 MG ECTAB PO SCH (21:07)
[2024-12-10] MEDS: oxyCODONE HCL IR 5 MG TAB (IMMEDIATE RELEASE) PO PRN (04:36)
[2024-12-10 06:43] LABS: Hematocrit (blood only) 29.9 % (37.0-47.0); Hemoglobin 9.9 g/dl (12.0-16.0); Mean Corpuscular Hemoglobin 29.9 pg (25.0-34.0); Mean Corpuscular Hgb Conc 33.1 g/dL (32.0-36.0); Mean Corpuscular Volume 90.3 fL (80.0-100.0); Platelet Count 168 K/uL (130-400); RDW Coefficient of Variation 13.1 % (11.5-14.5); RDW Standard Deviation 43.2 fL (36.4-46.3); Red Blood Count 3.31 M/uL (4.20-5.40); White Blood Count 10.07 K/ul (4.8-10.8)
[2024-12-10 06:50] LABS: BUN Creatinine Ratio 29.1 (10-20); Calcium 8.8 mg/dl (8.6-10.3); Creatinine Clr Calc Pharmacy 43.4 ml/min; Potassium 4.5 mmol/L (3.5-5.1)
--- NOTE | 2024-12-10 07:54 | Orthopedic Progress Note ---
Date of Service December 10, 2024 Assessment & Plan (1) Osteoarthritis of left knee: Plan: Postop day 1 status post left total knee arthroplasty. Still having some ongoing bleeding not unexpected with requirement for partial synovectomy removal multiple loose bodies and multiple calcium deposits within the knee joint. Patient wants to go to rehab hospital if possible. Patient lives alone and thinks this would be better for her in postoperative period. Will have social service look into this as possible discharge option for her. Continue drain for another day. Continue hospital stay for another day. Admission and Anticipated Discharge Date Admission Date: December 09, 2024 Subjective Patient says her knee feels better and is more function than before surgery. No medical complaints. Review of Systems Review of Systems: No chest pain shortness of breath. Physical Exam Musculoskeletal: Left knee bandage intact. Hemovac drain still draining. Distal circulation sensorimotor exam intact. Results & Data Vital Signs (Past 12 Hours) Vital Signs Temp Pulse Pulse Resp BP BP Pulse Ox 12/10/24 07:04 36.7 C 62 16 137/74 97 12/10/24 03:31 36.7 C 73 16 137/72 95 12/09/24 23:07 36.5 C 85 16 133/71 97 12/09/24 19:52 36.6 C 68 16 123/74 97 O2 Del Method 12/10/24 07:04 Room Air 12/10/24 03:31 Room Air 12/09/24 23:07 Room Air 12/09/24 19:52 Room Air Diagnostic Findings X-rays demonstrate well aligned total knee replacement (1) Osteoarthritis of left knee Osteoarthritis type: primary Qualified Code(s): M17.12 - Unilateral primary osteoarthritis, left knee
[2024-12-10] MEDS: amLODIPine BESYLATE 5 MG TAB PO SCH (08:30)
[2024-12-10] MEDS: CEROVITE ADV FORMULA TAB PO SCH (08:31)
[2024-12-10] MEDS: LORATADINE 10 MG TAB PO SCH (08:31)
[2024-12-10] MEDS: LOSARTAN POTASSIUM 50 MG TAB PO SCH (08:33)
[2024-12-10] MEDS: hydroCHLOROthiazide 25 MG TAB PO SCH (08:33)
[2024-12-10] MEDS: CHOLECALCIFEROL 25 MCG (1000 UNITS) TAB PO SCH (08:33)
[2024-12-10] MEDS: METOPROLOL TARTRATE 50 MG TAB PO SCH (08:34)
[2024-12-10] MEDS: DULoxetine HCL 30 MG CAP PO SCH (08:35)
[2024-12-10] MEDS: ZINC SULFATE 220 MG CAPSULE PO SCH (08:36)
[2024-12-10] MEDS: ASCORBIC ACID 500 MG TAB PO SCH (08:36)
[2024-12-10] MEDS: PANTOprazole 40 MG TAB PO SCH (08:36)
[2024-12-10] MEDS: FEXOFENADINE HCL 180 MG TAB PO SCH (08:37)
[2024-12-10] MEDS: CLOBETASOL PROPIONATE 0.05% CREAM 15 GM TUBE TOP SCH (08:40)
[2024-12-10] MEDS ORDERED: NERVIVE PO SCH (09:00)
[2024-12-10] MEDS ORDERED: MULTIVITAMIN TAB PO SCH (09:00)
[2024-12-10] MEDS: LANTUS PER UNIT CHARGE SC ONE (12:58)
[2024-12-10] MEDS: KETOROLAC TROMETHAMINE 15 MG/ML VIAL IV PRN (16:40)
--- NOTE | 2024-12-10 17:15 | Hospitalist Progress Note ---
Date of Service December 10, 2024 Assessment & Plan (1) Rotator cuff tear arthropathy of right shoulder: Plan: as per primary service DVT per primary service (2) HTN (hypertension): Plan: Blood pressure remainss stable. Continue home medications. This can be continued at discharge as well. (3) Type 2 diabetes mellitus: Plan: consulted glycemic control reviewed BMP and CBC (4) Scoliosis: Plan Medicine will sign off. Please tiger Dr. Villa if any questions or concerns. Admission and Anticipated Discharge Date Admission Date: December 10, 2024 Subjective Patient reports no Shortness of breath, chest pain, nausea. Physical Exam Constitutional: WD/WN, vitals as above Eyes: PERRL, conjunctivae normal, anicteric sclerae ENMT: external ear and nose normal, oropharynx normal Neck: trachea midline, no thyromegaly Respiratory: normal respiratory effort, lungs clear to auscultation Cardiovascular: RRR, no murmur, no edema Gastrointestinal (Abdomen): normal bowel sounds, soft, nontender, no hepatosplenomegaly Musculoskeletal: Head/Neck/Chest: + head abnormal to inspection Skin: no rashes, warm and dry Neurologic: moves all extremities Psychiatric: A+Ox3, euthymic affect Lymphatic: no cervical or axillary lymphadenopathy Results & Data Results & Data Vital Signs (Past 12 Hours) Vital Signs Temp Pulse Resp BP Pulse Ox O2 Del Method 12/10/24 14:01 36.6 C 62 16 120/72 98 Room Air 12/10/24 07:04 36.7 C 62 16 137/74 97 Room Air PG Care Time/CCT Total # of Minutes Spent Total Time Spent with Patient: Total time spent is greater than 50% in coordination of care (as documented) at patient's floor/unit and/or counseling patient: Coding Level of Care Code 52645 SUB INP/OBS CARE 2/35MIN Diagnoses Rotator cuff tear arthropathy of right shoulder M75.101; M12.811 HTN (hypertension) I10 Type 2 diabetes mellitus E11.9 Scoliosis M41.9
[2024-12-10] MEDS: LANTUS PER UNIT CHARGE SC SCH (20:39)
[2024-12-11] MEDS: METHOCARBAMOL 500 MG TABLET PO PRN (08:32)
[2024-12-11] MEDS: LANTUS PER UNIT CHARGE SC SCH (08:44)
[2024-12-11] MEDS: MAGNESIUM HYDROXIDE SUSP 30 ML UDC PO PRN (08:45)
--- NOTE | 2024-12-11 09:46 | Pharmacy Report ---
Pharmacy Glycemic Short Note 2 - Date of Service December 11, 2024 - Glycemic Short BSG Results (Last 24 hours): 12/10/24 12/10/24 12/10/24 11:26 16:31 20:35 POC Glucose 160 H 117 H 149 H 12/11/24 07:50 POC Glucose 149 H OUTPATIENT ANTIDIABETIC REGIMEN: * Metformin 1,000 mg PO BID * Glimepiride 4 mg PO BID w meals * Insulin glargine 32-50 units (according to the med rec: pt states that he has been taking 24 units since he has had lower sugars in the morning) HbA1c: 7.5% 11/11/24 ASSESSMENT: 12/11/24: * Blood sugars reasonably well-controlled yesterday, ranging 117-160 mg/dL * Received 31 units of insulin (~50/50 basal/bolus split) * Will change to once daily basal, do not anticipate any major changes to regimen today 12/09/24: * COBY is a 78YO F with T2DM requiring insulin here postop LTKA. Pharmacy consulted to manage her T2DM. * BSGs within range this AM, once transferred to crept up to 191. * PMH includes HTN, HLD, GERD, PSVT, gastric ulcer, diverticulosis. * Patient received 8mg IV dexamethasone intra-op, no postop doses ordered. Postop ancef 2g q8h ordered. T1DM diet ordered. PLAN FOR INPATIENT GLYCEMIC CONTROL: * Hold outpatient oral diabetes medications * Basal insulin * Lantus 15 units SC daily * Bolus insulin * NovoLog per scale ACHS or Q6hrs while NPO * Goal Range: Low 110 mg/dL - High 140 mg/dL * Correction Factor: 30 mg/dL/unit * Nutritional / Prandial insulin per carb ratio of 1 unit per 10 grams CHO consumed
[2024-12-11 12:19] VITALS: BP 140/76; PULSE 79; RESP 16; TEMP 99; O2SAT 97
--- NOTE | 2024-12-11 13:11 | Orthopedic Progress Note ---
Date of Service December 11, 2024 Assessment & Plan (1) Osteoarthritis of left knee: Plan: Doing well postop day #2 status post total knee arthroplasty PT/OT DVT prophylaxis--aspirin 81 mg twice daily, ADELITA stockings Pain controlas written Discharge planningplan for discharge to [place] today. Admission and Anticipated Discharge Date Admission Date: December 10, 2024 Subjective Patient states she is doing well. Pain is controlled in the knee but she does have increased pain today compared to yesterday. The dressing and drain have been removed. No new complaints today. Physical Exam Constitutional: WD/WN, vitals as above no acute distress Musculoskeletal: Knee: + surgical incision (DYLAN in place and functioning); no skin erythema, no ecchymosis and no surgical drain present Skin: no rashes, warm and dry Trauma: no evidence of skin trauma Neurologic: normal touch/pain/proprioception (Left ankle dorsiflexion intact.) Psychiatric: A+Ox3, euthymic affect Speech: normal rate/rhythm/volume of speech Results & Data Vital Signs (Past 12 Hours) Vital Signs Temp Pulse Pulse Resp BP BP Pulse Ox 12/11/24 12:16 37.2 C 79 16 140/76 97 12/11/24 08:00 37.0 C 81 17 132/82 12/11/24 02:58 37.2 C 72 20 121/64 95 O2 Del Method 12/11/24 12:16 Room Air 12/11/24 08:00 Room Air 12/11/24 02:58 Room Air (1) Osteoarthritis of left knee Osteoarthritis type: primary Qualified Code(s): M17.12 - Unilateral primary osteoarthritis, left knee
--- NOTE | 2024-12-16 10:05 | Discharge Summary ---
Date of Service December 16, 2024 Admission HPI Per Admitting Provider 78-year-old female with chronic left knee pain that was treated conservatively for quite some time. She failed conservative management and is now being set up for left total knee arthroplasty. Patient denies headaches, sweats, fevers, chills, double vision, blurred vision, cough, sore throat, dysphagia, chest pain, n/v/d/v, fatigue, urinary symptoms. ROS positive for irregular heartbeat, depression, hand numbness, osteoarthritis spine, acid reflux, COPD, sleep apnea, shortness of breath with activity or lying flat. Principal Diagnosis Left knee osteoarthritis Discharge Exam Constitutional WD/WN, vitals as above no acute distress Musculoskeletal Knee: + surgical incision (DYLAN in place and functioning); no skin erythema, no ecchymosis and no surgical drain present Skin no rashes, warm and dry Trauma: no evidence of skin trauma Neurologic normal touch/pain/proprioception (Left ankle dorsiflexion intact.) Psychiatric A+Ox3, euthymic affect Speech: normal rate/rhythm/volume of speech Discharge Data Allergies Allergy/AdvReac Type Severity Reaction Status Date / Time ibuprofen AdvReac Intermediate Gastrointestinal Verified 12/09/24 05:53 Upset metronidazole [From Flagyl] AdvReac Intermediate Gastrointestinal Verified 12/09/24 05:53 Upset propoxyphene [From Darvon] AdvReac Mild Fatigued Verified 12/09/24 05:53 Consultations 12/07/24 10:50 Consult Hospitalist Routine 12/09/24 12:04 Consult Hospitalist Routine Procedures Performed Operation Date: 12/09/24 07:00 Actual Procedures p Left Total Knee Arthroplasty, Cemented(Left) - Neil Polanco MD Ordered Studies 12/09/24 05:00 US - OR guided needle placemen Routine Hospital Course (1) Osteoarthritis of left knee: Doing well postop day #2 status post total knee arthroplasty PT/OT DVT prophylaxis--aspirin 81 mg twice daily, ADELITA stockings Pain controlas written Discharge planning[facility] for [facility]. Total Time Total Time Spent Total Time Spent (In Minutes): 30 Discharge Plan Discharge Items Patient Disposition: Transfer [facility] Reason For Visit: Left Knee Osteoarthritis Discharge Diagnosis: Left knee osteoarthritis Activity: Per Instructions section Non-emergency contact: Surgeon Call non-emergency contact if: your pain is not controlled, your pain is worsening and your temperature is above 101 Follow-up/Referrals: Kalin Rodarte MD [Primary Care Provider] - Diet: Regular Addtl Attending Provider Instructions: ACTIVITY RECOMMENDATIONS: SELF CARE INSTRUCTIONS AFTER TOTAL KNEE REPLACEMENT A. You may need to continue a physical therapy program after discharge from the hospital. There are several options available to you. Your doctor will assist you in selecting the best one for you. 1. An out-patient facility 3 times a week for therapy. 2. Home therapy for 1 to 2 weeks with outpatient therapy to follow. 3. Continue working on all exercises taught by physical therapy three times a day for 20 minutes on non-therapy days. Your goals should be to increase the bending of your knee to 90 degrees and beyond and to fully straighten your knee. Ice and elevate knee after exercise. B. Weight as tolerated with a walker or as instructed by your physician. C. It is okay to shower if minimal to no drainage from incision. No Baths. Do not soak wound. D. Make walking a part of your daily routine. Be up as much as comfortable with rest periods throughout the day. Rest with leg elevation is very important. Use the ice wrap frequently for the first 3-4 weeks. E. There are no restrictions on activities. You may ride in a car, shop, participate in owner/photographer and all social activities. F. Wear the long elastic stockings (ADELITA hose) 20 hours a day for one month after surgery. They can be removed several times a day for laundering and when showering. G. You may return to previous diet. H. DYLAN dressing: You have a DYLAN dressing on your surgical wound. It will remain in place for 7 days from surgery. You will be provided with a booklet with the do's and don'ts with the dressing in place. After 7 days, the dressing may be removed. If there is drainage from the surgical incision, you may cover the wound with dry dressings SPECIAL CARE INSTRUCTIONS: VERY IMPORTANT TO READ AND REVIEW A. Take Coumadin, Xarelto, Aspirin or Lovenox (blood thinning medications) as directed by your doctor. If on Coumadin, have a pro-time (blood test) drawn according to your doctor's instructions. This will tell the doctor how well the Coumadin is thinning your blood. B. There are a few signs you need to watch for after you are home. Call [facility] if you notice any of the followin. Increased severe knee pain. Some pain is expected especially when you exercise. 2. Increased swelling in your leg or knee; pain or swelling of the calf muscle in either lower leg. 3. Any redness or fluid drainage from the incision. 4. Shortness of breath or chest pain. 5. A Temperature of 101 degrees F or greater. C. Please call [facility] at if you have any concerns or questions about your operation or recovery. The doctor or his nurse will return your call promptly. D. You must take antibiotics before dental work, bladder, bowel or other surgery. Your doctor will provide you with a permanent care to carry describing this precaution. FOLLOW UP VISIT: If appointment is not already scheduled: Please call [facility] to make a follow-up appointment for 2 weeks after your surgery at . Pending Studies at Discharge: No Stand-Alone Forms: [facility] Skilled Items Patient informed of condition?: Yes DNR: No Discharge Level of Care: Acute rehab Communicable Disease: No Discharge Prognosis: Stable Lines: None Urinary Catheter: No Medications and DC Order Prescriptions: New cefadroxil 500 mg capsule 500 mg PO Q12H Qty: 28 0RF oxycodone 5 mg tablet 5 mg PO Q4H PRN (Reason: pain) Qty: 20 0RF acetaminophen [Tylenol Extra Strength] 500 mg tablet 1,000 mg PO Q8H Qty: 90 0RF celecoxib [Celebrex] 200 mg capsule 200 mg PO Q12H Qty: 60 0RF Xarelto 10 mg tablet 10 mg PO DAILY Qty: 14 0RF Continued insulin glargine 100 unit/mL (3 mL) insulin pen See Rx Instructions subcut QPM Qty: 15 11RF Patient Comments: "I've been taking 24 units in the evening/hs because my sugars were really low in the morning" Rx Instructions: 32-50 units subcutaneously daily in the evening; metformin 500 mg tablet extended release 24 hr 1,000 mg PO BID Qty: 360 3RF metoprolol tartrate 50 mg tablet 50 mg PO BID Qty: 180 3RF Patient Comments: 1.5 tabs in the morning, 1 tab in the evening Rx Instructions: 1.5 tabs in the morning, 1 tab in the evening (DME) lancets [Prodigy Twist Top Lancet] 28 gauge misc See Rx Instructions .Route Qty: 100 5RF Rx Instructions: check sugar once daily As directed DX:E11.9 (DME) Prodigy No Coding Strip See Rx Instructions .Route Qty: 100 3RF Rx Instructions: As directed once daily glimepiride 4 mg tablet 4 mg PO BID Qty: 180 3RF Rx Instructions: take prior to breakfast and supper. hydrochlorothiazide 25 mg tablet 25 mg PO QAM Qty: 90 3RF (DME) pen needle, diabetic [Comfort EZ Pen Arminto] 33 gauge x 3/16" needle See Rx Instructions .Route Qty: 100 3RF Rx Instructions: As directed E11.65, Z79.4 fluticasone propionate 50 mcg/actuation spray,suspension 2 spray intranasal DAILY PRN (Reason: Allergy Symptoms) Qty: 16 guaifenesin [Mucus Relief] 400 mg tablet 400 mg PO ONCE PRN (Reason: congestion) coenzyme Q10 400 mg capsule 800 mg PO DAILY MELOX/KILLIAN/LIDOCAINE/PRILOCAINE (29AL) See Rx Instructions topical QID PRN (Reason: pain) Qty: 120 11RF Patient Comments: "I don't think I am using that" Rx Instructions: 1-2 grams topically four times daily PRN; clobetasol 0.05 % cream 1 applic topical DAILY Qty: 30 4RF Rx Instructions: Apply thin layer daily x 2 weeks, then 2-3 times thereafter. Osteo Bi-Flex Triple Strength 750 mg-644 mg- 30 mg-1 mg tablet 1 tab PO BID Qty: 60 0RF Rx Instructions: give with meal/snack loratadine [Allergy Relief (loratadine)] 10 mg tablet 10 mg PO DAILY Qty: 30 0RF zinc 30 mg PO DAILY Centrum Silver Women 8 mg iron-400 mcg-300 mcg tablet 1 tab PO DAILY ascorbate calcium (vitamin C) 500 mg tablet 500 mg PO DAILY cholecalciferol (vitamin D3) 25 mcg (1,000 unit) capsule 25 mcg PO DAILY nervive 1 tab PO DAILY (DME) Wheeled Walker Misc See Rx Instructions .Route Qty: 1 0RF Rx Instructions: wheels in front and tennis balls in back atorvastatin [Lipitor] 40 mg tablet 40 mg PO QPM methocarbamol 500 mg tablet 500 mg PO QID PRN (Reason: muscle spasm) Rx Instructions: 1-2 TAB PO QID PRN; amlodipine 2.5 mg tablet 2.5 mg PO QAM fexofenadine [Lilliana Allergy] 180 mg tablet 180 mg PO DAILY lansoprazole [Prevacid] 30 mg capsule,delayed release(DR/EC) 30 mg PO QAM gabapentin [Neurontin] 300 mg capsule 300 mg PO TID losartan 100 mg tablet 100 mg PO QAM duloxetine [Cymbalta] 30 mg capsule,delayed release(DR/EC) 30 mg PO QAM Rx Instructions: Take with breakfast for mood and pain instead of citalopram. PreserVision AREDS 4,296 mcg-226 mg-90 mg Capsule 1 cap PO BID Discontinued hydrocodone-acetaminophen 5-325 mg tablet 1 - 2 tab PO QID PRN (Reason: Pain) Qty: 240 0RF celecoxib 200 mg capsule 200 mg PO QAM Hold Instructions: Home Medication placed on hold at Doctor's office Discharge Orders: Discharge Order (Routine); Ordered 12/11/24 Ordered By: Rafa Loya Admission Data Admit Date/Time: 12/10/24 07:54 Attending Provider: Neil Polanco Admit Provider: Neil Polanco Primary Care Provider: Kalin Rodarte Other Providers: Robbi Villa Other Interventions: Discharge Summary Assessment (RN) Last Done: 12/11/24 13:44
== END 2024-12-11 15:51 | DRG 470 ==
LOC: ASU 05:17 → PACUINP 05:17 → 3E 13:21